=== PATIENT | female | born 1985 ===

== ENCOUNTER 2021-03-20 08:01 | Outpatient (REF) | payer OTHER, SELFPAY ==
--- NOTE | ~2021-03-20 | CT_ITS ---
EXAMINATION: CT ANGIOGRAM BRAIN, HEAD CLINICAL INFORMATION: 36-year-old undergoing evaluation for cerebral aneurysm. COMPARISON: None. TECHNIQUE: Test bolus sequences followed by intravenous administration 75 mL of Omnipaque 350 intravenous contrast. Helical imaging was performed in the axial plane from the skull base to the vertex. Delayed postcontrast imaging of the head was also performed. The data was processed at the electrophysiology technologist workstation for generation of MIP sequences. Three-dimensional volume rendered reformatted images were also generated at an offline 3-D workstation. The degree of stenosis determined by NASCET criteria. This CT examination was performed using dose optimization techniques as appropriate, variously including the following: *Automated exposure control *Adjustment of mA and/or kV according to patient size (this includes techniques or standardized protocols for targeted exams where dose is matched to indication/reason for exam; i.e. extremities or head) *Use of iterative reconstruction technique DLP: 2107.00 mGy-cm FINDINGS: Anterior Circulation: The visualized extracranial internal carotid arteries are patent and normal in caliber. The intracranial internal carotid arteries are patent and normal in caliber bilaterally. The M1 segments of the MCAs are bilaterally symmetric and normal in caliber, with a normal appearance to the M2 branches and MCA bifurcations. The right A1 segment is normal in caliber. The left A1 segment is hypoplastic but is faintly visualized. The anterior communicating artery is diminutive. The A2 branches are patent but are not optimally depicted. No aneurysms are seen within the anterior circulation. Both posterior communicating arteries are visualized. Posterior Circulation: The visualized extradural vertebral arteries are patent, with the right being dominant. The right intradural vertebral artery is patent and is dominant. The left intradural vertebral artery terminates in a PICA, which is an anatomic variant. The basilar artery is patent and normal in caliber. The superior cerebellar and posterior cerebral arteries are patent and normal in caliber. No posterior circulation aneurysms are identified. The major dural venous sinuses appear opacified. Right transverse sinus is relatively hypoplastic. Parenchymal images demonstrate that the brain is normal in morphology and attenuation with normal gupta-white matter differentiation. No extra-axial fluid collections, intracranial mass lesion, abnormal enhancement, space-occupying process or mass effect are identified. The ventricular system and subarachnoid spaces are within normal limits without hydrocephalus. The bony structures are intact. The visualized airspaces are unopacified. CT/CT angio head IMPRESSION: 1. Normal CT angiogram of the brain. No intracranial aneurysm identified. No evidence for arteriovenous malformation. 2. Normal precontrast and delayed postcontrast CT of the brain.
[2021-03-20] MEDS: iohexoL 350 MG/ML 100 ML INFUS..BTL IV (09:39)
== END 2021-03-20 08:02 | disposition home or self-care (01) ==
LOC: HO.CT 08:01
PROVIDERS: Visit Provider Psychiatry & Neurology Neurology
DX: I67.1 Cerebral aneurysm, nonruptured (principal)
CPT/HCPCS: 70496; Q9967

== ENCOUNTER 2022-01-29 12:30 | Outpatient (REF) | payer OTHER, SELFPAY ==
[2022-01-29 13:47] LABS: MANUAL DIFF FLAG NO
[2022-01-29 13:58] LABS: Basophils Percent Auto 0.2 % (0-2); Eosinophils Percent Auto 0.2 % (0-4); Hematocrit 37.2 % (37.0-47.0); Hemoglobin 12.2 g/dl (12.0-16.0); Imm Gran Abs Auto 0.02 X10*3/uL (0.00-0.03); Imm Gran Pct Auto 0.3 % (0.0-0.4); Lymphocytes Absolute Auto 2.5 X10*3/uL (1.2-4.9); Lymphocytes Percent Auto 39.1 % (20-40); Mean Corpuscular HGB Conc 32.8 g/dl (31.0-35.0); Mean Corpuscular Hemoglobin 29.2 pg (27.0-33.0); Mean Platelet Volume 10.2 fL (9.4-12.3); Monocytes Absolute Auto 0.7 X10*3/uL (0.1-1.2); Monocytes Percent Auto 11.5 % (2-11); Neutrophils Absolute Auto 3.1 x10*3/uL (2.0-8.3); Neutrophils Percent Auto 48.7 % (45-73); Platelet Count 246 X10*3/uL (160-400); Red Blood Count 4.18 X10*6/uL (4.20-5.50); Red Cell Distribution Width 11.8 % (11.0-16.0); White Blood Count 6.3 X10*3/uL (4.8-10.8)
[2022-01-29 15:23] LABS: Alanine Aminotransferase 22 U/L (0-31); Albumin Level 3.9 g/dL (3.5-5.0); Alkaline Phosphatase 91 U/L (39-117); Anion Gap 12 (12-20); Aspartate Amino Transferase 23 U/L (5-31); Bilirubin Total 0.7 mg/dL (0.0-1.0); Blood Urea Nitrogen 9 mg/dL (9-16); Calcium 9.7 mg/dL (8.4-10.2); Carbon Dioxide 22 mmol/L (22-29); Chloride 107 mmol/L (96-108); Cholesterol 147 mg/dL; Estimated Glomerular Filt Rate > 60; Glucose Fasting 86 mg/dL (60-99); HDL Cholesterol 51 mg/dL; LDL Cholesterol Calculated 83 mg/dl; Potassium 4.3 mmol/L (3.3-5.1); Sodium 137 mmol/L (135-145); TSH reflex Free T4 < 0.01 uIU/mL (0.32-4.0); Triglycerides 66 mg/dL
[2022-01-29 16:02] LABS: Free T4 (Free Thyroxine) 3.26 ng/dL (0.71-1.85)
[2022-02-02 13:33] LABS: Triiodothyronine T3 Free >20.0 pg/mL (2.3-4.2)
[2022-02-02 18:58] LABS: Thyroid Peroxidase Antibodies >900 IU/mL (<9)
== END 2022-01-29 12:31 | disposition home or self-care (01) ==
LOC: HO.WFDLDS 12:30
PROVIDERS: Visit Provider Nurse Practitioner Family
DX: Z00.00 Encounter for general adult medical examination without abnormal findings (principal); E05.90 Thyrotoxicosis, unspecified without thyrotoxic crisis or storm
CPT/HCPCS: 36415; 80053; 80061; 84439; 84443; 84481; 85025; 86376

== ENCOUNTER → 2022-02-04 11:31 | Outpatient (BNVA) | payer OTHER, SELFPAY | PROVIDERS: PCP Nurse Practitioner Family; Visit Provider Internal Medicine | DX: E05.90 Thyrotoxicosis, unspecified without thyrotoxic crisis or storm (principal) | CPT/HCPCS: 99202 ==

== ENCOUNTER 2022-02-04 12:09 | Emergency (ER) | payer OTHER, SELFPAY ==
[2022-02-04 12:11] VITALS: BP 158/69; PULSE 114; RESP 18; TEMP 36.8; O2SAT 100; BMI 25.9
--- NOTE | 2022-02-04 12:16 | ECG_ITS ---
Test Reason : tachycardia Blood Pressure : / mmHG Vent. Rate : 108 BPM Atrial Rate : 108 BPM P-R Int : 144 ms QRS Dur : 078 ms QT Int : 368 ms P-R-T Axes : 044 061 035 degrees QTc Int : 493 ms Sinus tachycardia Otherwise normal ECG No previous ECGs available Referred By: Henry Haji Electronically Signed By:Huber Alanis
--- NOTE | 2022-02-04 12:26 | ED_ITS ---
HPI - Arrhythmia/Palpitations General Chief Complaint: Arrhythmia/Palpitations <Henry Haji MD - Last Filed: 02/04/22 12:29> Stated Complaint: Tachycardia <Henry Haji MD - Last Filed: 02/04/22 12:29> Time Seen by Provider: 02/04/22 12:57 <Henry Haji MD - Last Filed: 02/04/22 12:29> Source: patient <Merry Santoyo MD - Last Filed: 02/04/22 15:07> Mode of arrival: ambulatory <Merry Santoyo MD - Last Filed: 02/04/22 15:07> History of Present Illness HPI narrative: 36-year-old female states that she has been enduring weeks ?crushing chest pain? and that it did not just began today she denies any recent travel history but did receive a prescription for Lopressor by her primary care provider but has not taken it for 2 days. She denies any unilateral calf swelling or diaphoresis but states that she has had a persistent anxious feeling as well as temperature fluctuations. Patient saw her medical record transcriber today to stop the metoprolol and started her on propanolol and methimazole. <Merry Santoyo MD - Last Filed: 02/04/22 15:07> Related Data Home Medications: Home Medications Medication Instructions Recorded Confirmed ibuprofen 600 mg tablet 600 mg PO Q6H PRN moderate pain 02/04/22 02/04/22 Previous Rx's Medication Instructions Recorded methimazole 10 mg tablet 10 mg PO BID 30 days #60 tabs 02/04/22 propranolol 10 mg tablet 10 mg PO Q8H 30 days #90 tabs 02/04/22 <Henry Haji MD - Last Filed: 02/04/22 12:29> Allergies/Adverse Reactions: Allergies Allergy/AdvReac Type Severity Reaction Status Date / Time No Known Allergies Allergy Verified 02/04/22 12:02 <Henry Haji MD - Last Filed: 02/04/22 12:29> Review of Systems Review of Systems: Pertinent positives and negatives as stated in HPI 10 point review of systems is otherwise negative. <Merry Santoyo MD - Last Filed: 02/04/22 15:07> PMFSH Past Medical History Source: nursing notes reviewed <Merry Santoyo MD - Last Filed: 02/04/22 15:07> Medical History: Medical History Thyroid eye disease <Henry Haij MD - Last Filed: 02/04/22 12:29> Surgical History: Surgical History History of appendectomy Hx of section Hx of wisdom tooth extraction <Henry Haji MD - Last Filed: 02/04/22 12:29> Family History Family History: Family History Father HTN (hypertension) Diabetes mellitus Mother Aneurysm Tumor Nasal tumor Sarcoidosis <Henry Haji MD - Last Filed: 02/04/22 12:29> Social History Social History: Social History Housing: House Alcohol intake: current Alcohol intake frequency: holidays/special occasions only Alcohol type: wine Patient Tobacco Use Status: Never used Tobacco e-Cigarette/Vaping Use: Never Used Advance Directives: No Advance Directives Information Provided: No service: No Current occupational status: employed 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 Current occupational exposures/hazards: No Cognitive needs: No Hearing needs: No Vision needs: No <Henry Haji MD - Last Filed: 02/04/22 12:29> Physical Exam Vital Signs: Vital Signs: Last Vital Signs Temp 98.2 F 02/04/22 12:11 Pulse 105 H 02/04/22 13:01 Resp 22 H 02/04/22 13:01 BP 130/54 L 02/04/22 13:01 Pulse Ox 100 02/04/22 12:11 O2 Del Method 02/04/22 12:11 BMI result Body Mass Index 25.9 <Henry Haji MD - Last Filed: 02/04/22 12:29> Vital Signs: Last Vital Signs Temp 98.2 F 02/04/22 12:11 Pulse 105 H 02/04/22 13:01 Resp 22 H 02/04/22 13:01 BP 130/54 L 02/04/22 13:01 Pulse Ox 100 02/04/22 12:11 O2 Del Method 02/04/22 12:11 BMI result Body Mass Index 25.9 VITAL SIGNS: Reviewed. GENERAL: Well developed, well nourished, in mild distress. HEAD: Normocephalic/atraumatic EYES: PERRLA, EOMI EARS: Ext canals without abnormality OROPHARYNX: no oral lesions noted, posterior pharynx clear LUNGS: Normal breath sounds, tachypnea without wheeze/rhonchi/rales. SpO2<100> CARDIOVASCULAR: Sinus tachycardia and rhythm without noted murmurs ABDOMEN: Soft, non-tender, non-distended with bowel sounds. MUSCULOSKELETAL: No tenderness, deformities, or effusions noted on gross inspection. EXTREMITIES: No cyanosis, clubbing or edema. SKIN: Inspection of the skin reveals no rashes NEUROLOGIC: Alert and oriented x 4. Strength and sensation to light touch were grossly intact x 4. <Merry Santoyo MD - Last Filed: 02/04/22 15:07> Course Course Course Narrative: RME: 36-year-old female times 15 months presents emergency department for evaluation of tremors, shakiness, elevated heart rate, change in her vision, trouble sleeping and weight loss. Patient's PCP started her on metoprolol for tachycardia and referred her to an medical record transcriber. Patient was seen by her medical record transcriber today diagnosed with hyperthyroidism but the patient was complaining of significant chest pain so she was referred to the emergency department for evaluation. At the time my evaluation, she is complaining of palpitations only. The patient was found to be tachycardic. I ordered a CBC, CMP, quantitative beta-hCG, troponin and EKG. <Henry Haji MD - Last Filed: 02/04/22 12:29> RME: 36-year-old female times 15 months presents emergency department for evaluation of tremors, shakiness, elevated heart rate, change in her vision, trouble sleeping and weight loss. Patient's PCP started her on metoprolol for tachycardia and referred her to an medical record transcriber. Patient was seen by her medical record transcriber today diagnosed with hyperthyroidism but the patient was complaining of significant chest pain so she was referred to the emergency department for evaluation. At the time my evaluation, she is complaining of palpitations only. The patient was found to be tachycardic. I ordered a CBC, CMP, quantitative beta-hCG, troponin and EKG. 1416: Patient appears well although anxious which she has states is not new, will give patient her new dose of propanolol as well as hydroxyzine to help with her feelings of anxiety as she has a small child to care for home and is driving herself. 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 I noticed an elevated/detectable troponin level which likely is reflective of patient's ongoing tachycardia, patient's D-dimer is 221 and given remaining history and clinical findings unlikely to be PE. I will re-evaluate the patient after she has received her propanolol and hydroxyzine. 1445: Heart rate is improving, 2nd troponin is flat likely again indicative to patient's persistent tachycardia over a prolonged period of time. Patient states that she is feeling ?so much better?. She is otherwise discharged home in stable condition with instructions to continue her new medication as prescribed and she will receive a referral to follow-up with Cardiology as well. <Merry Santoyo MD - Last Filed: 02/04/22 15:07> Medications Administered Discontinued Medications Generic Name Dose Route Start Last Admin Trade Name Freq PRN Reason Stop Dose Admin Hydroxyzine HCl 25 mg 02/04/22 13:49 02/04/22 14:11 Hydroxyzine Hcl 25 Mg Tablet PO 02/04/22 13:50 25 mg ONCE ONE Administration Propranolol HCl 10 mg 02/04/22 13:49 02/04/22 14:11 Propranolol Hcl 10 Mg Tablet PO 02/04/22 13:50 10 mg ONCE ONE Administration Protocol <Henry Haji MD - Last Filed: 02/04/22 12:29> Medications Administered Discontinued Medications Generic Name Dose Route Start Last Admin Trade Name Freq PRN Reason Stop Dose Admin Hydroxyzine HCl 25 mg 02/04/22 13:49 02/04/22 14:11 Hydroxyzine Hcl 25 Mg Tablet PO 02/04/22 13:50 25 mg ONCE ONE Administration Propranolol HCl 10 mg 02/04/22 13:49 02/04/22 14:11 Propranolol Hcl 10 Mg Tablet PO 02/04/22 13:50 10 mg ONCE ONE Administration Protocol <Merry Santoyo MD - Last Filed: 02/04/22 15:07> Medical Decision Making Medical Decision Making MDM Narrative: This is a 36-year-old female with diagnose thyrotoxicosis by her primary care provider and medical record transcriber and has undergone medication changes today and will be started on propanolol and methimazole. Patient is not currently in thyroid storm, she is mildly tachycardic. <Merry Santoyo MD - Last Filed: 02/04/22 15:07> Differential Diagnosis Differential Diagnoses: The differential diagnosis associated with the presentation includes <Merry Santoyo MD - Last Filed: 02/04/22 15:07> Dehydration, thyrotoxicosis, less likely cardiac ischemia or PE <Merry Santoyo MD - Last Filed: 02/04/22 15:07> Lab Data Result Diagrams: : 02/04/22 12:26 02/04/22 12:26 <Henry Haji MD - Last Filed: 02/04/22 12:29> Labs: Lab Results 02/04/22 02/04/22 02/04/22 Range/Units 12:26 12:26 12:26 WBC 10.1 (4.8-10.8) X10*3/uL RBC 3.87 L (4.20-5.50) X10*6/uL Hgb 11.5 L (12.0-16.0) g/dl Hct 34.7 L (37.0-47.0) % MCV 89.7 (80.0-98.0) fL MCH 29.7 (27.0-33.0) pg MCHC 33.1 (31.0-35.0) g/dl RDW 12.0 (11.0-16.0) % Plt Count 186 (160-400) X10*3/uL MPV 9.0 L (9.4-12.3) fL Immature Gran % (Auto) 0.2 (0.0-0.4) % Neut % (Auto) 68.9 (45-73) % Lymph % (Auto) 21.7 (20-40) % [place] % (Auto) 9.0 (2-11) % Eos % (Auto) 0.1 (0-4) % Baso % (Auto) 0.1 (0-2) % Lymph # (Auto) 2.2 (1.2-4.9) X10*3/uL [place] # (Auto) 0.9 (0.1-1.2) X10*3/uL Eos # (Auto) 0.0 (0.0-0.4) X10*3/uL Baso # (Auto) 0.0 (0.0-0.2) X10*3/uL Abs Immat Gran (auto) 0.02 (0.00-0.03) X10*3/uL Absolute Neuts (auto) 7.0 (2.0-8.3) x10*3/uL Absolute Nucleated RBC 0.000 (0.0-0.012) X10*3/uL Nucleated RBC % (auto) 0.0 (0.0-0.2) /100WBC D-Dimer High Sensitivty NG/ML Sodium 140 (135-145) mmol/L Potassium 4.3 (3.3-5.1) mmol/L Chloride 110 H (96-108) mmol/L Carbon Dioxide 22 (22-29) mmol/L Anion Gap 12 (12-20) BUN 9 (9-16) mg/dL Creatinine 0.56 (0.5-1.4) mg/dL Estim Creat Clear Calc 149.9 Estimated GFR > 60 Random Glucose 85 (60-115) mg/dL Calcium 9.4 (8.4-10.2) mg/dL Total Bilirubin 0.6 (0.0-1.0) mg/dL AST 16 (5-31) U/L ALT 14 (0-31) U/L Alkaline Phosphatase 89 (39-117) U/L Troponin I High Sens 24.1 H (<3.5-17.0) ng/L Total Protein 6.6 (6.5-8.0) g/dL Albumin 3.5 (3.5-5.0) g/dL Beta HCG, Quant mIU/mL 02/04/22 02/04/22 02/04/22 Range/Units 12:26 13:16 13:59 WBC (4.8-10.8) X10*3/uL RBC (4.20-5.50) X10*6/uL Hgb (12.0-16.0) g/dl Hct (37.0-47.0) % MCV (80.0-98.0) fL MCH (27.0-33.0) pg MCHC (31.0-35.0) g/dl RDW (11.0-16.0) % Plt Count (160-400) X10*3/uL MPV (9.4-12.3) fL Immature Gran % (Auto) (0.0-0.4) % Neut % (Auto) (45-73) % Lymph % (Auto) (20-40) % [place] % (Auto) (2-11) % Eos % (Auto) (0-4) % Baso % (Auto) (0-2) % Lymph # (Auto) (1.2-4.9) X10*3/uL [place] # (Auto) (0.1-1.2) X10*3/uL Eos # (Auto) (0.0-0.4) X10*3/uL Baso # (Auto) (0.0-0.2) X10*3/uL Abs Immat Gran (auto) (0.00-0.03) X10*3/uL Absolute Neuts (auto) (2.0-8.3) x10*3/uL Absolute Nucleated RBC (0.0-0.012) X10*3/uL Nucleated RBC % (auto) (0.0-0.2) /100WBC D-Dimer High Sensitivty 221 NG/ML Sodium (135-145) mmol/L Potassium (3.3-5.1) mmol/L Chloride (96-108) mmol/L Carbon Dioxide (22-29) mmol/L Anion Gap (12-20) BUN (9-16) mg/dL Creatinine (0.5-1.4) mg/dL Estim Creat Clear Calc Estimated GFR Random Glucose (60-115) mg/dL Calcium (8.4-10.2) mg/dL Total Bilirubin (0.0-1.0) mg/dL AST (5-31) U/L ALT (0-31) U/L Alkaline Phosphatase (39-117) U/L Troponin I High Sens 24.1 H (<3.5-17.0) ng/L Total Protein (6.5-8.0) g/dL Albumin (3.5-5.0) g/dL Beta HCG, Quant < 2 mIU/mL <Henry Haji MD - Last Filed: 02/04/22 12:29> Lab Results 02/04/22 02/04/22 02/04/22 Range/Units 12:26 12:26 12:26 WBC 10.1 (4.8-10.8) X10*3/uL RBC 3.87 L (4.20-5.50) X10*6/uL Hgb 11.5 L (12.0-16.0) g/dl Hct 34.7 L (37.0-47.0) % MCV 89.7 (80.0-98.0) fL MCH 29.7 (27.0-33.0) pg MCHC 33.1 (31.0-35.0) g/dl RDW 12.0 (11.0-16.0) % Plt Count 186 (160-400) X10*3/uL MPV 9.0 L (9.4-12.3) fL Immature Gran % (Auto) 0.2 (0.0-0.4) % Neut % (Auto) 68.9 (45-73) % Lymph % (Auto) 21.7 (20-40) % [place] % (Auto) 9.0 (2-11) % Eos % (Auto) 0.1 (0-4) % Baso % (Auto) 0.1 (0-2) % Lymph # (Auto) 2.2 (1.2-4.9) X10*3/uL [place] # (Auto) 0.9 (0.1-1.2) X10*3/uL Eos # (Auto) 0.0 (0.0-0.4) X10*3/uL Baso # (Auto) 0.0 (0.0-0.2) X10*3/uL Abs Immat Gran (auto) 0.02 (0.00-0.03) X10*3/uL Absolute Neuts (auto) 7.0 (2.0-8.3) x10*3/uL Absolute Nucleated RBC 0.000 (0.0-0.012) X10*3/uL Nucleated RBC % (auto) 0.0 (0.0-0.2) /100WBC D-Dimer High Sensitivty NG/ML Sodium 140 (135-145) mmol/L Potassium 4.3 (3.3-5.1) mmol/L Chloride 110 H (96-108) mmol/L Carbon Dioxide 22 (22-29) mmol/L Anion Gap 12 (12-20) BUN 9 (9-16) mg/dL Creatinine 0.56 (0.5-1.4) mg/dL Estim Creat Clear Calc 149.9 Estimated GFR > 60 Random Glucose 85 (60-115) mg/dL Calcium 9.4 (8.4-10.2) mg/dL Total Bilirubin 0.6 (0.0-1.0) mg/dL AST 16 (5-31) U/L ALT 14 (0-31) U/L Alkaline Phosphatase 89 (39-117) U/L Troponin I High Sens 24.1 H (<3.5-17.0) ng/L Total Protein 6.6 (6.5-8.0) g/dL Albumin 3.5 (3.5-5.0) g/dL Beta HCG, Quant mIU/mL 02/04/22 02/04/22 02/04/22 Range/Units 12:26 13:16 13:59 WBC (4.8-10.8) X10*3/uL RBC (4.20-5.50) X10*6/uL Hgb (12.0-16.0) g/dl Hct (37.0-47.0) % MCV (80.0-98.0) fL MCH (27.0-33.0) pg MCHC (31.0-35.0) g/dl RDW (11.0-16.0) % Plt Count (160-400) X10*3/uL MPV (9.4-12.3) fL Immature Gran % (Auto) (0.0-0.4) % Neut % (Auto) (45-73) % Lymph % (Auto) (20-40) % [place] % (Auto) (2-11) % Eos % (Auto) (0-4) % Baso % (Auto) (0-2) % Lymph # (Auto) (1.2-4.9) X10*3/uL [place] # (Auto) (0.1-1.2) X10*3/uL Eos # (Auto) (0.0-0.4) X10*3/uL Baso # (Auto) (0.0-0.2) X10*3/uL Abs Immat Gran (auto) (0.00-0.03) X10*3/uL Absolute Neuts (auto) (2.0-8.3) x10*3/uL Absolute Nucleated RBC (0.0-0.012) X10*3/uL Nucleated RBC % (auto) (0.0-0.2) /100WBC D-Dimer High Sensitivty 221 NG/ML Sodium (135-145) mmol/L Potassium (3.3-5.1) mmol/L Chloride (96-108) mmol/L Carbon Dioxide (22-29) mmol/L Anion Gap (12-20) BUN (9-16) mg/dL Creatinine (0.5-1.4) mg/dL Estim Creat Clear Calc Estimated GFR Random Glucose (60-115) mg/dL Calcium (8.4-10.2) mg/dL Total Bilirubin (0.0-1.0) mg/dL AST (5-31) U/L ALT (0-31) U/L Alkaline Phosphatase (39-117) U/L Troponin I High Sens 24.1 H (<3.5-17.0) ng/L Total Protein (6.5-8.0) g/dL Albumin (3.5-5.0) g/dL Beta HCG, Quant < 2 mIU/mL <Merry Santoyo MD - Last Filed: 02/04/22 15:07> Independent Interpretation I performed an independent interpretation of an: EKG <Merry Santoyo MD - Last Filed: 02/04/22 15:07> Interpretation: Sinus tachycardia, HR-108, no STEMI, NV/QRS/QTC are within normal limits. <Merry Santoyo MD - Last Filed: 02/04/22 15:07> Critical Care Time Critical Care Time Critical Care Time: Yes <Merry Santoyo MD - Last Filed: 02/04/22 15:07> Total Critical Care Time: 30 <Merry Santoyo MD - Last Filed: 02/04/22 15:07> Attestation: I personally attest to this time spent taking care of the patient. <Merry Santoyo MD - Last Filed: 02/04/22 15:07> Discharge Plan Discharge Clinical Impression: Thyrotoxicosis due to Graves' disease <Henry Haji MD - Last Filed: 02/04/22 12:29> Patient Disposition: Home, Self-Care <Henry Haji MD - Last Filed: 02/04/22 12:29> Additional Instructions: 1. Take medication as prescribed. 2. Recommend [id number] Benadryl as needed for additional assistance in sleeping at night. 3. Continue to follow-up with primary care provider/medical record transcriber. 4. A referral for cardiology has been provided to you below. Return to the ER for any worsening symptoms. <Henry Haji MD - Last Filed: 02/04/22 12:29> Prescriptions: No Action ibuprofen 600 mg tablet 600 mg PO Q6H PRN (Reason: moderate pain) propranolol 10 mg tablet 10 mg PO Q8H 30 Days Qty: 90 5RF Rx Instructions: Hold if HR <70 methimazole 10 mg tablet 10 mg PO BID 30 Days Qty: 60 6RF <Henry Haji MD - Last Filed: 02/04/22 12:29> Referrals: Prabha Kenyon CNP [Primary Care Provider] - Huber Alanis MD [Physician] - (36F with thyrotoxicosis, started on Propranolol/Methimazole, flat Trops at 24.) <Henry Haji MD - Last Filed: 02/04/22 12:29>
[2022-02-04 12:33] LABS: Basophils Percent Auto 0.1 % (0-2); Eosinophils Percent Auto 0.1 % (0-4); Hematocrit 34.7 % (37.0-47.0); Hemoglobin 11.5 g/dl (12.0-16.0); Imm Gran Abs Auto 0.02 X10*3/uL (0.00-0.03); Imm Gran Pct Auto 0.2 % (0.0-0.4); Lymphocytes Absolute Auto 2.2 X10*3/uL (1.2-4.9); Lymphocytes Percent Auto 21.7 % (20-40); MANUAL DIFF FLAG NO; Mean Corpuscular HGB Conc 33.1 g/dl (31.0-35.0); Mean Corpuscular Hemoglobin 29.7 pg (27.0-33.0); Mean Corpuscular Volume 89.7 fL (80.0-98.0); Monocytes Absolute Auto 0.9 X10*3/uL (0.1-1.2); Neutrophils Percent Auto 68.9 % (45-73); Platelet Count 186 X10*3/uL (160-400); Red Blood Count 3.87 X10*6/uL (4.20-5.50); White Blood Count 10.1 X10*3/uL (4.8-10.8)
[2022-02-04 12:49] LABS: Alanine Aminotransferase 14 U/L (0-31); Albumin Level 3.5 g/dL (3.5-5.0); Alkaline Phosphatase 89 U/L (39-117); Anion Gap 12 (12-20); Aspartate Amino Transferase 16 U/L (5-31); Bilirubin Total 0.6 mg/dL (0.0-1.0); Blood Urea Nitrogen 9 mg/dL (9-16); Calcium 9.4 mg/dL (8.4-10.2); Carbon Dioxide 22 mmol/L (22-29); Chloride 110 mmol/L (96-108); Creatinine Clr Calc Pharmacy 149.9; Estimated Glomerular Filt Rate > 60; Glucose Random 85 mg/dL (60-115); Potassium 4.3 mmol/L (3.3-5.1); Sodium 140 mmol/L (135-145); Total Protein 6.6 g/dL (6.5-8.0)
[2022-02-04 12:56] LABS: Troponin-I High Sensitivity 24.1 ng/L (<3.5-17.0)
[2022-02-04 12:57] LABS: HCG Quantitative < 2 mIU/mL
[2022-02-04 13:01] VITALS: BP 130/54; PULSE 105; RESP 22
[2022-02-04 13:45] LABS: D Dimer High Sensitivity 221 NG/ML
[2022-02-04] MEDS: hydrOXYzine HCL 25 MG TABLET PO (14:11)
[2022-02-04] MEDS: Propranolol HCL 10 MG TABLET PO (14:11)
[2022-02-04 14:25] LABS: Troponin-I High Sensitivity 24.1 ng/L (<3.5-17.0)
--- NOTE | 2022-02-04 14:36 | PC.NURSE ---
pt a&ox3, sinus tach, other vss, medicated per provider order. no new orders at this time.
[2022-02-04 16:45] LABS: Magnesium 1.5 mg/dL (1.6-2.6)
== END 2022-02-04 15:27 | disposition home or self-care (01) ==
PROVIDERS: Emergency Medicine Emergency Medical Services; Emergency Provider Student in an Organized Health Care Education/Training Program; PCP Nurse Practitioner Family
DX: E05.00 Thyrotoxicosis with diffuse goiter without thyrotoxic crisis or storm (principal); R00.0 Tachycardia, unspecified
CPT/HCPCS: 36415; 80053; 83735; 84484; 84702; 85025; 85379; 93005; 99283

== ENCOUNTER 2022-02-19 11:22 | Outpatient (REF) | payer OTHER, SELFPAY ==
--- NOTE | ~2022-02-19 | US_ITS ---
EXAMINATION: US THYROID CLINICAL INFORMATION: Thyrotoxicosis, unspecified without thyrotoxic crisis or storm. COMPARISON: None. TECHNIQUE: Linear transducer grayscale and color Doppler examination with attention to the region of the thyroid. FINDINGS: SIZE: Measurements of the thyroid lobes and nodules are given in sagittal, anteroposterior and transverse dimensions respectively. Right Thyroid Lobe: 5.8 x 2.5 x 2.4 cm, volume 18.1 mL. Parenchyma: The gland echotexture is heterogeneous. Thyroid vascularity is increased. Left Thyroid Lobe: 5.0 x 2.4 x 2.1 cm, volume 13.1 mL. Parenchyma: The gland echotexture is heterogeneous. Thyroid vascularity is increased. Isthmus: 0.9 cm in maximum AP dimension. No focal thyroid nodule is seen. NODES: No lymphadenopathy is seen in the tissue surrounding the thyroid gland. US/US thyroid IMPRESSION: Enlarged slightly heterogeneous and hypervascular thyroid lobes but no focal lesion seen. The findings are most likely secondary to thyrotoxicosis. ACR TI-RADS RECOMMENDATION REFERENCE: Ultrasound-guided fine-needle aspiration, followup ultrasound, no further follow up. * TR1 (0 point) and TR 2 (2 points): No FNA or follow up. * TR3 (3 points): FNA if more than or equal to 2.5 cm in maximum dimension, followup ultrasound in 1, 3 and 5 years if 1.5 to 2.4 cm in maximum dimension. * TR4 (4-6 points): FNA if more than or equal to 1.5 cm in maximum dimension, followup ultrasound in 1, 2, 3 and 5 years if 1 to 1.4 cm in maximum dimension. * TR5 (more than or equal to 7 points): FNA if more than or equal to 1 cm in maximum dimension, followup ultrasound every year for 5 years if 0.5 to 0.9 cm in maximum dimension. * TR3, TR4 or TR5 nodules that are below the size threshold for followup receive no follow up.
[2022-02-20 17:09] LABS: Triiodothyronine T3 Total 263 ng/dL (76-181)
[2022-02-23 15:48] LABS: Thyroid Stimulating Immunoglob 648 % baseline (<140)
[2022-02-23 20:58] LABS: Thyroglobulin Antibodies 269 IU/mL (< or = 1)
[2022-02-24 15:03] LABS: Thyrotropin Receptor Antibody >40.00 IU/L (<=2.00)
== END 2022-02-19 11:23 | disposition home or self-care (01) ==
LOC: HO.HMGCX 11:22
PROVIDERS: PCP Nurse Practitioner Family; Visit Provider Internal Medicine
DX: E05.90 Thyrotoxicosis, unspecified without thyrotoxic crisis or storm (principal)
CPT/HCPCS: 36415; 76536; 83520; 84439; 84445; 84480; 86800

== ENCOUNTER → 2022-02-25 10:27 | Outpatient (BNVA) | payer OTHER, SELFPAY | PROVIDERS: PCP Nurse Practitioner Family; Visit Provider Internal Medicine | DX: E05.90 Thyrotoxicosis, unspecified without thyrotoxic crisis or storm (principal) | CPT/HCPCS: 99212 ==

== ENCOUNTER → 2022-02-26 09:21 | Outpatient (REF) | payer OTHER, SELFPAY ==
--- NOTE | ~2022-02-26 | NM_ITS ---
EXAMINATION: THYROID UPTAKE AND SCAN CLINICAL INFORMATION: Thyrotoxicosis. COMPARISON: No previous radionuclide thyroid scan is available for comparison. Thyroid ultrasound dated 02/19/2022 is available for comparison. TECHNIQUE: Following the oral administration of 291 microcuries of I-123 sodium iodide, thyroid uptake was performed and expressed as a percentage of the administrated dose. Gamma scintillation camera images of the thyroid in the anterior and right and left anterior oblique views were obtained using a pinhole collimator following the administration of 10 mCi Tc-99m pertechnetate. FINDINGS: The uptake is 57.2% at 4 hours and 93.8% at 24 hours (Normal radioiodine uptake at 24 hours is 10% to 30%). The radioiodine uptake is markedly elevated. The radiopertechnetate thyroid scintigram shows the thyroid gland to be mildly enlarged, proximally 1 1/2 times normal in size. There is homogeneous distribution of activity within the gland with markedly increased trapping function. No focal abnormalities are present. A single anterior radioiodine image obtained at the time of the 24-hour uptake measurement is similar to the radio pertechnetate image. NM/NM thyroid w uptake IMPRESSION: Mildly enlarged diffuse toxic goiter of Graves' disease. Markedly elevated radioiodine uptake. No nodules are visualized.
== END ==
LOC: HO.NUCMED 09:21
PROVIDERS: PCP Nurse Practitioner Family; Visit Provider Internal Medicine
DX: E05.90 Thyrotoxicosis, unspecified without thyrotoxic crisis or storm (principal)
CPT/HCPCS: 78014; A9512; A9516

== ENCOUNTER → 2022-03-26 09:16 | Outpatient (BNVA) | payer SELFPAY | PROVIDERS: PCP Family Medicine; Referring Provider Family Medicine; Visit Provider Internal Medicine | DX: R00.0 Tachycardia, unspecified (principal); R00.2 Palpitations; R77.8 Other specified abnormalities of plasma proteins; E05.90 Thyrotoxicosis, unspecified without thyrotoxic crisis or storm | CPT/HCPCS: 99202 ==

== ENCOUNTER 2022-09-07 03:48 | Emergency (ER) | payer OTHER, SELFPAY ==
--- NOTE | ~2022-09-07 | XR_ITS ---
EXAMINATION: XR CHEST CLINICAL INFORMATION: Chest pain COMPARISON: None available. TECHNIQUE: Frontal view of the chest was obtained. FINDINGS: The lungs are clear with no focal consolidation. No evidence of pneumothorax, pulmonary edema, or pleural effusions. The cardiomediastinal silhouette is unremarkable. No acute osseous findings. XR/XR chest 1V IMPRESSION: No acute cardiopulmonary findings.
[2022-09-07 03:49] VITALS: BP 140/77; PULSE 116; RESP 22; TEMP 36.4; O2SAT 100; BMI 23.3
--- NOTE | 2022-09-07 03:55 | ECG_ITS ---
Test Reason : cp Blood Pressure : / mmHG Vent. Rate : 113 BPM Atrial Rate : 113 BPM P-R Int : 180 ms QRS Dur : 078 ms QT Int : 336 ms P-R-T Axes : 031 070 061 degrees QTc Int : 460 ms Sinus tachycardia Otherwise normal ECG When compared with ECG of 04-FEB-2022 12:18, No significant change was found Referred By: Generic ED Physician Electronically Signed By:DEIDRA MATA MD
--- NOTE | 2022-09-07 04:06 | ECG_ITS ---
Test Reason : CHEST PAIN Blood Pressure : / mmHG Vent. Rate : 121 BPM Atrial Rate : 121 BPM P-R Int : 172 ms QRS Dur : 078 ms QT Int : 308 ms P-R-T Axes : 050 068 025 degrees QTc Int : 437 ms Sinus tachycardia Nonspecific ST and T wave abnormality When compared with ECG of 07-SEP-2022 03:56, No significant change was found Referred By: Generic ED Physician Electronically Signed By:DEIDRA MATA MD
[2022-09-07 04:13] VITALS: BP 123/75; PULSE 107; RESP 22; TEMP 36.8; O2SAT 99
[2022-09-07 04:13] LABS: MANUAL DIFF FLAG NO
[2022-09-07 04:16] LABS: Basophils Percent Auto 0.1 % (0-2); Eosinophils Absolute Auto 0.1 X10*3/uL (0.0-0.4); Eosinophils Percent Auto 0.6 % (0-4); Hematocrit 34.1 % (37.0-47.0); Hemoglobin 11.2 g/dl (12.0-16.0); Imm Gran Abs Auto 0.01 X10*3/uL (0.00-0.03); Imm Gran Pct Auto 0.1 % (0.0-0.4); Lymphocytes Absolute Auto 3.9 X10*3/uL (1.2-4.9); Lymphocytes Percent Auto 44.5 % (20-40); Mean Corpuscular HGB Conc 32.8 g/dl (31.0-35.0); Mean Corpuscular Hemoglobin 29.4 pg (27.0-33.0); Mean Corpuscular Volume 89.5 fL (80.0-98.0); Mean Platelet Volume 9.8 fL (9.4-12.3); Monocytes Absolute Auto 0.9 X10*3/uL (0.1-1.2); Monocytes Percent Auto 10.4 % (2-11); Neutrophils Absolute Auto 3.9 x10*3/uL (2.0-8.3); Neutrophils Percent Auto 44.3 % (45-73); Platelet Count 174 X10*3/uL (160-400); Red Blood Count 3.81 X10*6/uL (4.20-5.50); Red Cell Distribution Width 11.8 % (11.0-16.0); White Blood Count 8.8 X10*3/uL (4.8-10.8)
[2022-09-07 04:24] LABS: D Dimer High Sensitivity 216 NG/ML
--- NOTE | 2022-09-07 04:29 | PC.NURSE ---
Pt arrived to ED reporting 9 substernal chest pain radiating to back, pressure in nature. Reports multiple episodes of diarrhea and nausea today. EKG completed showing ST, labs drawn and sent, IV placed #20 L-AC. Pt ST 100's-110's on tele. MD at bedside order repeat troponin at 0630.
[2022-09-07 04:33] VITALS: PULSE 108
[2022-09-07 04:34] LABS: Alanine Aminotransferase 24 U/L (0-31); Albumin Level 3.3 g/dL (3.5-5.0); Alkaline Phosphatase 133 U/L (39-117); Anion Gap 12 (12-20); Aspartate Amino Transferase 21 U/L (5-31); Bilirubin Direct 0.3 mg/dL (0.0-0.5); Bilirubin Total 0.7 mg/dL (0.0-1.0); Blood Urea Nitrogen 11 mg/dL (9-16); Calcium 10.1 mg/dL (8.4-10.2); Carbon Dioxide 23 mmol/L (22-29); Chloride 110 mmol/L (96-108); Creatinine Clr Calc Pharmacy 155.8; Estimated Glomerular Filt Rate > 60; Glucose Random 96 mg/dL (60-115); Lipase 16 U/L (8-78); Potassium 3.7 mmol/L (3.3-5.1); Sodium 141 mmol/L (135-145); Total Protein 6.6 g/dL (6.5-8.0)
[2022-09-07 04:37] LABS: Troponin-I High Sensitivity 2.8 ng/L (<3.5-17.0)
--- NOTE | 2022-09-07 04:42 | ED.CHESTPAIN ---
HPI - Chest Pain General Chief Complaint: Chest Pain Stated Complaint: Chest pain Time Seen by Provider: 09/07/22 04:38 Source: patient Mode of arrival: ambulatory Limitations: no limitations History of Present Illness HPI narrative: A 37-year-old female woke up from sleep today with lightheadedness, been shaky, chest pain, patient also had nonbloody watery diarrhea and vomiting. Chest pain is constant for are and have now feels like pressure on the chest, with no radiation, no associated symptoms with the pain, no shortness of breath, no recent travel, no recent prolonged immobilization. Patient was hyperthyroidism with thyrotoxicosis. Patient had a cardiology evaluation for elevated troponin and patient thought that elevated troponin secondary still hyperthyroidism rather coronary artery disease. Related Data Home Medications Medication Instructions Recorded Confirmed ibuprofen 600 mg tablet 600 mg PO Q6H PRN moderate pain 02/04/22 03/26/22 Previous Rx's Medication Instructions Recorded methimazole 10 mg tablet 10 mg PO BID 30 days #60 tabs 02/23/22 propranolol 10 mg tablet 20 mg PO Q8H 90 days #540 tabs 03/26/22 Allergies Allergy/AdvReac Type Severity Reaction Status Date / Time No Known Allergies Allergy Verified 03/26/22 09:21 Review of Systems Review of Systems: All other systems are reviewed and are negative Constitutional: Reports as per HPI and Reports no additional constitutional complaints Eyes: Reports as per HPI and Reports no additional eye complaints Reports system reviewed and no additional complaints, except as documented Cardiovascular: Reports as per HPI and Reports no additional cardiovascular complaints Respiratory: Reports as per HPI and Reports no additional respiratory complaints Gastrointestinal: Reports as per HPI and Reports no additional gastrointestinal complaints Genitourinary: Reports no additional female genitourinary complaints Musculoskeletal: Reports no additional musculoskeletal complaints Skin/Breast: Reports system reviewed and no additional complaints, except as docu Psychiatric: Reports no additional psychiatric complaints Endocrine: Reports no additional endocrine complaints Hematologic/Lymphatic: Reports no additional hematologic/lymphatic complaints Allergic/Immunologic: Reports no additional allergic/immunologic complaints Reports system reviewed and no additional complaints, except as documented and Reports Abnormal speech present [facility] Past Medical History Medical History Thyroid eye disease Surgical History History of appendectomy Hx of section Hx of wisdom tooth extraction Family History Family History Father HTN (hypertension) Diabetes mellitus Mother Aneurysm Tumor Nasal tumor Sarcoidosis Social History Social History Housing: House Alcohol intake: never Patient Tobacco Use Status: Never used Tobacco Smoked in Last 30 Days: No e-Cigarette/Vaping Use: Never Used Advance Directives: No Advance Directives Information Provided: Yes service: No Current occupational status: employed 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 Blood pressure normal. Heart rate elevated. Respiration rate elevated. Temperature normal. Oxygen saturation normal. Appearance: Alert. Oriented X3. No acute distress. Head: Normal external exam. Normocephalic. Atraumatic. No Jackson signs noted. No raccoon eyes noted Eyes: PERRLA. EOMI. Conjunctiva and sclera normal. Eyelids normal. ENT: TM's Normal. Pharynx normal. Uvula midline. Moist mucous membranes. No trismus noted. No drooling noted. No muffled voice noted. Neck: Normal inspection. Neck supple. FROM. No adenopathy. Thyroid Normal. No meningeal signs. No neck mass noted. CVS: Normal heart rate and rhythm. Heart sound normal. No murmurs noted. Pulses normal throughout. Respiratory: No respiratory distress. Painless inspiration. Breath sounds normal. No wheezes/rales/rhonchi noted. Chest nontender. No accessory muscle usage noted or decreased air movement noted. Abdomen: Soft and nontender. Bowel sounds normal in all 4 quadrants. No distention noted. No organomegaly noted. No visible injury noted. Back: No CVA tenderness. Full range of motion noted. Skin: Skin warm and dry. Normal skin color. Normal skin turgor. No rashes/lesions/lacerations noted. Extremities: No lower extremity edema. Extremities exhibit normal range of motion. Extremities nontender. Neuro: Oriented X 3. Cranial nerve exam: II-XII are grossly intact No motor deficit. No sensory deficit. Reflexes normal. Course Course Course Narrative: 37-year-old female came in for evaluation with chest pain, patient has unremarkable chest x-ray, unchanged EKG with nonspecific ST-T changes. Negative troponin x2 making ACS is unfavorable. Medical Decision Making Differential Diagnosis Differential Diagnoses: The differential diagnosis associated with the presentation includes (Chest wall pain, ACS, costochondritis, pneumothorax, pneumonia, pleural effusion, electrolyte abnormality, pulmonary embolism.) Admission/Observation Consideration of admission/observation: Escalation of care including admission/observation considered Lab Data MDM Lab Attestation statement: I reviewed the patient's lab results. 09/07/22 04:09 09/07/22 04:09 Labs: Lab Results 09/07/22 09/07/22 09/07/22 Range/Units 04:09 04:09 04:09 WBC 8.8 (4.8-10.8) X10*3/uL RBC 3.81 L (4.20-5.50) X10*6/uL Hgb 11.2 L (12.0-16.0) g/dl Hct 34.1 L (37.0-47.0) % MCV 89.5 (80.0-98.0) fL MCH 29.4 (27.0-33.0) pg MCHC 32.8 (31.0-35.0) g/dl RDW 11.8 (11.0-16.0) % Plt Count 174 (160-400) X10*3/uL MPV 9.8 (9.4-12.3) fL Immature Gran % (Auto) 0.1 (0.0-0.4) % Neut % (Auto) 44.3 L (45-73) % Lymph % (Auto) 44.5 H (20-40) % [place] % (Auto) 10.4 (2-11) % Eos % (Auto) 0.6 (0-4) % Baso % (Auto) 0.1 (0-2) % Lymph # (Auto) 3.9 (1.2-4.9) X10*3/uL [place] # (Auto) 0.9 (0.1-1.2) X10*3/uL Eos # (Auto) 0.1 (0.0-0.4) X10*3/uL Baso # (Auto) 0.0 (0.0-0.2) X10*3/uL Abs Immat Gran (auto) 0.01 (0.00-0.03) X10*3/uL Absolute Neuts (auto) 3.9 (2.0-8.3) x10*3/uL Absolute Nucleated RBC 0.000 (0.0-0.012) X10*3/uL Nucleated RBC % (auto) 0.0 (0.0-0.2) /100WBC D-Dimer High Sensitivty 216 NG/ML Sodium 141 (135-145) mmol/L Potassium 3.7 (3.3-5.1) mmol/L Chloride 110 H (96-108) mmol/L Carbon Dioxide 23 (22-29) mmol/L Anion Gap 12 (12-20) BUN 11 (9-16) mg/dL Creatinine 0.49 L (0.5-1.4) mg/dL Estim Creat Clear Calc 155.8 Estimated GFR > 60 Random Glucose 96 (60-115) mg/dL Calcium 10.1 D (8.4-10.2) mg/dL Total Bilirubin 0.7 (0.0-1.0) mg/dL Direct Bilirubin 0.3 (0.0-0.5) mg/dL AST 21 (5-31) U/L ALT 24 (0-31) U/L Alkaline Phosphatase 133 H (39-117) U/L Troponin I High Sens (<3.5-17.0) ng/L Total Protein 6.6 (6.5-8.0) g/dL Albumin 3.3 L (3.5-5.0) g/dL Lipase 16 (8-78) U/L 09/07/22 Range/Units 04:09 WBC (4.8-10.8) X10*3/uL RBC (4.20-5.50) X10*6/uL Hgb (12.0-16.0) g/dl Hct (37.0-47.0) % MCV (80.0-98.0) fL MCH (27.0-33.0) pg MCHC (31.0-35.0) g/dl RDW (11.0-16.0) % Plt Count (160-400) X10*3/uL MPV (9.4-12.3) fL Immature Gran % (Auto) (0.0-0.4) % Neut % (Auto) (45-73) % Lymph % (Auto) (20-40) % [place] % (Auto) (2-11) % Eos % (Auto) (0-4) % Baso % (Auto) (0-2) % Lymph # (Auto) (1.2-4.9) X10*3/uL [place] # (Auto) (0.1-1.2) X10*3/uL Eos # (Auto) (0.0-0.4) X10*3/uL Baso # (Auto) (0.0-0.2) X10*3/uL Abs Immat Gran (auto) (0.00-0.03) X10*3/uL Absolute Neuts (auto) (2.0-8.3) x10*3/uL Absolute Nucleated RBC (0.0-0.012) X10*3/uL Nucleated RBC % (auto) (0.0-0.2) /100WBC D-Dimer High Sensitivty NG/ML Sodium (135-145) mmol/L Potassium (3.3-5.1) mmol/L Chloride (96-108) mmol/L Carbon Dioxide (22-29) mmol/L Anion Gap (12-20) BUN (9-16) mg/dL Creatinine (0.5-1.4) mg/dL Estim Creat Clear Calc Estimated GFR Random Glucose (60-115) mg/dL Calcium (8.4-10.2) mg/dL Total Bilirubin (0.0-1.0) mg/dL Direct Bilirubin (0.0-0.5) mg/dL AST (5-31) U/L ALT (0-31) U/L Alkaline Phosphatase (39-117) U/L Troponin I High Sens 2.8 D (<3.5-17.0) ng/L Total Protein (6.5-8.0) g/dL Albumin (3.5-5.0) g/dL Lipase (8-78) U/L Independent Interpretation I performed an independent interpretation of an: EKG (Sinus tachycardia at 120 Bpm,, normal axis deviation, normal intervals, ST-T nonspecific changes. No change from 02/04/2022) and Plain X-Ray (No acute intrathoracic pathology.) Radiology Impression Discussion of test interpretation with radiology: I have reviewed the radiologist's reading. Scores Heart Score History: -0- slightly suspicious ECG: -1- non specific repolarization disturbance Age: -0- < or = 45 Risk factory: -0- no risk factors known Troponin: -0- < or = normal limit Score: 1 Risk: 1.7% Discharge Plan Discharge Clinical Impression: Chest pain Patient Disposition: Home, Self-Care Instructions: Chest Pain (ED) Prescriptions: No Action methimazole 10 mg tablet 10 mg PO BID 30 Days Qty: 60 6RF ibuprofen 600 mg tablet 600 mg PO Q6H PRN (Reason: moderate pain) propranolol 10 mg tablet 20 mg PO Q8H 90 Days Qty: 540 3RF Referrals: Huber Alanis MD [Physician] -
[2022-09-07 06:40] VITALS: BP 137/52; PULSE 106; RESP 24; O2SAT 98
[2022-09-07 07:05] LABS: Troponin-I High Sensitivity 2.8 ng/L (<3.5-17.0)
[2022-09-07 08:02] VITALS: BP 133/49; PULSE 108; RESP 18; O2SAT 98
--- NOTE | 2022-09-07 08:07 | PC.NURSE ---
pt a&ox3. respirations even and unlabored. skin appropriate for ethnicity. pt reports no pain. vss.
== END 2022-09-07 08:33 | disposition home or self-care (01) ==
PROVIDERS: Emergency Provider Emergency Medicine
DX: R07.89 Other chest pain (principal); Z79.899 Other long term (current) drug therapy
CPT/HCPCS: 36415; 71045; 80048; 80076; 83690; 84484; 85025; 85379; 93005; 99283; 99285

== ENCOUNTER → 2022-09-07 03:55 | Outpatient (BNV) | payer SELFPAY | PROVIDERS: Emergency Provider Emergency Medicine; Visit Provider Internal Medicine Cardiovascular Disease | DX: R00.0 Tachycardia, unspecified (principal) | CPT/HCPCS: 93010 ==

== ENCOUNTER 2022-09-21 08:16 | Outpatient (AMB) | payer SELFPAY ==
--- NOTE | 2022-09-21 08:17 | A.OFFVIS_ITS ---
Intake Vital Signs 09/21/22 08:18 Height 5 ft 7 in Weight 145 lb 8.081 oz BMI 22.8 BP 130/60 Blood Pressure Location Lt brachial Position Sitting Pulse 109 H Intake Visit Reasons: s/p 2 week ED follow up/ Dr. Slater PT Intake Note: s/p week ed f/u patient still felling chest pain and s/b Seaming Inspector Required: No Allergies No Known Allergies Allergy (Verified 09/21/22 08:28) HPI s/p 2 week ED follow up/ Dr. Slater PT HPI Details Shaka is a 37 yo female with PMH of hyperthyroidism, sinus tachycardia who was recently seen in the ED for atypical CP and ruled out for ACS. Today she states reports that she does get her pressure crossed her chest which occurs randomly without specific pattern. She will notice heart palpitations as well as shortness of breath. She is tearful at this visit and tells me that she has not been able to take her medications as directed as she has no health insurance. She is out of her thyroid medication. She is only taking 10 mg of propanolol once or twice a day. She denies dizziness, presyncope, syncope, falls. No PND, orthopnea or edema. She is currently working on [employer]. She is here with her toddler son. 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 Current occupational exposures/hazards: No Cognitive needs: No Hearing needs: No Vision needs: No Review of Systems Const All systems reviewed & are unremarkable except as noted in HPI and below ENT Reports dizziness Card Reports chest pain, Denies chest pain at rest, Denies chest pain with activity, Denies rapid heart rate, Denies pedal edema, Denies edema, Denies leg edema, Denies lightheadedness, Reports palpitations, Denies dyspnea, Denies dyspnea on exertion and Denies orthopnea Resp Denies cough, Denies dyspnea and Denies dyspnea on exertion GI Denies hematochezia and Denies change in stool character Musc Denies abnormal gait, Reports limited range of motion, Reports muscle cramps, Denies muscle weakness, Denies numbness, Denies radiating pain into limb, Denies stiffness and Denies tingling Neuro Denies abnormal gait, Reports dizziness, Denies numbness and Denies tingling Endo Reports palpitations Physical Exam Vital Signs: Last Vital Signs Pulse 109 H 09/21/22 08:18 BP 130/60 09/21/22 08:18 BMI result Body Mass Index 22.8 Const General: cooperative, healthy appearing, comfortable and no acute distress Orientation/consciousness: patient oriented x3 Neck Neck: Yes normal visual inspection Resp Effort & Inspection: normal respiratory effort Auscultation: clear to auscultation bilaterally, no crackles, no rales, no rhonchi and no wheezes Cardio Jugular venous distension: no JVD Rate: tachycardic Rhythm: regular rhythm Heart sounds: S1 normal heart sound present, S2 normal heart sound present, no murmurs and no rubs Neuro General: patient oriented x3 Extrem General: Yes normal to inspection Psych Appearance: grossly normal Mental Status: mental status grossly normal Speech and movement: Normal speech and movement present Office Procedures EKG Details: Today, read by me, sinus tachycardia, nonspecific T-wave abnormality, rate 109, QTC 474 millisecond [id number], Complete Assessment & Plan Assessment & Plan (1) Chest discomfort: Code(s): R07.89 - Other chest pain Plan: Atypical sounding chest discomfort. ED evaluation and ruled out for ACS. Low cardiac risk profile. She may be feeling symptoms from sinus tachycardia. She has known history of hyperthyroidism and tells me she has not been taking her medications due to no insurance. EKG done today showing sinus tachycardia without acute ST or T-wave abnormalities, rate 109. She has been taking only a low dose of propanolol in order to preserve her medication. She is working on [employer]. On last visit echocardiogram and Holter were ordered however not completed due to insurance issues. Will request that those tests be done in a few weeks once insurance obtained. Will restart on propanolol at 20 mg b.i.d.. She is currently taking 10 mg b.i.d.. Will reach out to her brim stretcher's and see if a refill can be sent on her methimazole and follow-up visit established. She says at this time her mother will be helping her pay for her medications. The importance of thyroid treatment reviewed with her and she states understanding. Cardiology follow-up in 3 months, sooner if needed. (2) Sinus tachycardia: Code(s): R00.0 - Tachycardia, unspecified Plan: As above (3) Hyperthyroidism: Code(s): E05.90 - Thyrotoxicosis, unspecified without thyrotoxic crisis or storm Plan: Followed by endocrinology Orders: Orders ECG 3 day holter monitor 10/05/22 R00.2 - Palpitations CA echo transthoracic complete 10/05/22 E05.90 - Thyrotoxicosis, unspecified without thyrotoxic crisis or storm, R00.2 - Palpitations, R77.8 - Other specified abnormalities of plasma proteins Medications: New propranolol 20 mg PO BID 180 tabs 1RF 90 days Discontinued propranolol Discontinued Reason: Doctor's Order 20 mg (2 x 10 mg) PO Q8H 90 days 540 tabs 3RF E05.90 - Thyrotoxicosis, unspecified without thyrotoxic crisis or storm Coding Level of Care Code Est Pt Level 3 (40619) Diagnoses Chest discomfort R07.89 Sinus tachycardia R00.0 Hyperthyroidism E05.90 CPT Codes EKG - CPT: 62666-[id number], Complete ([id number]) Time Spent (min) 22 Comment Chart review, documentation, interview, assess, MD discussion
[2022-09-21 08:18] VITALS: BP 130/60; PULSE 109; BMI 22.8
== END 2022-09-21 08:45 | disposition home or self-care (01) ==
PROVIDERS: Visit Provider Nurse Practitioner Family
DX: R07.89 Other chest pain (principal); R00.0 Tachycardia, unspecified; E05.90 Thyrotoxicosis, unspecified without thyrotoxic crisis or storm
CPT/HCPCS: 93010; 99213

== ENCOUNTER → 2022-09-21 08:16 | Outpatient (BNVA) | payer OTHER, SELFPAY | PROVIDERS: Visit Provider Nurse Practitioner Family | DX: R07.89 Other chest pain (principal); R00.2 Palpitations; E05.90 Thyrotoxicosis, unspecified without thyrotoxic crisis or storm; R77.8 Other specified abnormalities of plasma proteins | CPT/HCPCS: 93005; 99212 ==

== ENCOUNTER 2022-10-26 16:11 | Outpatient (AMB) | payer SELFPAY ==
[2022-10-26 16:22] VITALS: BP 120/68; PULSE 82; TEMP 36.8; O2SAT 98; BMI 22.2
--- NOTE | 2022-10-26 16:22 | A.OFFPC_ITS ---
Vital Signs 10/26/22 16:22 Height 5 ft 7 in Weight 142 lb BMI 22.2 BP 120/68 Blood Pressure Location Rt brachial Position Sitting Pulse 82 Pulse Source Pulse Oximeter Temp 98.2 F Temp Source Oral Pulse Oximetry (%) 98 Oxygen Delivery Method Room Air Intake Visit Reasons: Found a patch on skin ( mother has history of canc Intake Note: Patient is here with concern of skin cancer, found a spot on right leg. Allergies No Known Allergies Allergy (Verified 10/26/22 17:07) Medication List - Last Reconciled 10/26/22 by Prabha Kenyon CNP methimazole 10 mg PO BID 30 days propranolol 20 mg PO BID 90 days Tobacco use date assessed: 10/26/22 Dental Screening Dental Screen Date: 10/26/22 Did you have a dental visit in the last 12 months?: Yes Did you have a dental problem in the last 6 months where you did not have access to dental care?: No Was dental information given to patient?: Patient has dentist HPI HPI Comments History of Present Illness Details 37-year-old female presents with report of non itchy spot on her right leg. She notes she is concerned for skin cancer because her mother has h/o skin cancer. She was last seen in February 2022. She she was advised to follow-up for hypothyroidism in 1 month; however, she never followed up. She notes she was seen by Cardiology for hyperthyroidism and intends to follow- up once she acquires a better health plan. 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 He Hernandez, Ileana Crabtree, Ion Zuniga and colleagues, with an educational steven from [employer]. Review of Systems Const Details: Const Denies chills, Denies fatigue, Denies fever(s), Denies headache(s) and Denies weakness ENT Denies dizziness and Denies headache(s) Card Denies chest pain, Denies lightheadedness, Denies dyspnea and Denies other (Palpitations) Resp Denies cough, Denies dyspnea, Denies wheezing and Denies other ( shortness of breath) GI Denies abdominal pain, Denies melena, Denies hematochezia, Denies change in bowel habits, Denies dyspepsia and Denies nausea Denies hematuria and Denies dysuria Musc Denies abnormal gait, Denies myalgias, Denies arthralgias, Denies numbness and Denies tingling Skin/Breast Reports as per HPI Neuro Denies abnormal gait, Denies dizziness, Denies headache(s), Denies memory loss, Denies numbness, Denies Sensory deficit (Neuro), Denies tingling and Denies weakness Psych Denies anxiety, Denies depression, Denies memory loss Endo Denies cold intolerance, Denies fatigue, Denies heat intolerance, Denies polydipsia and Denies polyuria Aller/Immun Denies wheezing Physical exam (Primary Care) Vital Signs: Last Vital Signs Temp 98.2 F 10/26/22 16:22 Pulse 82 10/26/22 16:22 BP 120/68 10/26/22 16:22 Pulse Ox 98 10/26/22 16:22 Oxygen Delivery Method Room Air 10/26/22 16:22 BMI result Body Mass Index 22.2 Tobacco/Smoking Status: Tobacco use Status Tobacco use date assessed 10/26/22 10/26/22 16:30 Patient Tobacco Use Status Never used Tobacco 10/26/22 16:30 e-Cigarette/Vaping Use Never Used 10/26/22 16:30 Thrive Assessment: Date of Thrive Assessment Date Thrive assessed 03/05/22 10/26/22 16:30 Const Other: General: no acute distress and well developed Nutritional Appearance: well nourished Orientation/consciousness: patient oriented x3 [facility] Head: Yes normocephalic and Yes atraumatic Eyes General: appearance normal, both eyes and all related structures Pupils: Equal, round and reactive pupils present EOM: EOMs intact bilaterally Resp Effort & Inspection: normal respiratory effort Auscultation: clear to auscultation bilaterally Cardio Rate: regular rate Rhythm: regular rhythm Heart sounds: S1 normal heart sound present, S2 normal heart sound present, no gallops, no murmurs and no rubs GI Palpation (GI): No Abdominal aortic bruit present, Soft to palpation, nontender, No hepatosplenomegaly present and No Rebound tenderness present Auscultation: normal bowel sounds General: Yes no CVA tenderness Back/Spine/Pelvis Back: no CVA tenderness Cervical Spine: cervical ROM normal and No Cervical spine tenderness Thoracic/Lumbar Spine: thoraco-lumbar ROM normal, No pain with thoraco-lumbar ROM, No thoracic spinal tenderness and No lumbar spinal tenderness Extrem General: Yes normal to inspection, No edema and No calf tenderness Skin General: warm and dry. Normal skin color. Normal skin turgor Lesions: no lesions Rashes: Small, v-shaped slightly raised/red rash to the middle of right thigh, no blisters, no open areas, no discharge Trauma: no lacerations or abrasions Wounds: no wounds Nails: normal Neuro General: patient oriented x3, gait normal and no focal neuro deficit Cranial nerves: Yes Equal, round and reactive pupils present Cognition (Neuro): normal cognition Gait exam (Neuro): Normal gait present Sensory Exam: No Sensory deficit (Neuro) Psych Appearance: grossly normal Affect: normal affect Attitude: cooperative Thought process: Normal thought process present Assessment and Plan Assessment & Plan (1) Rash and nonspecific skin eruption: Code(s): R21 - Rash and other nonspecific skin eruption Plan: Small, v-shaped slightly raised/red rash to the middle of right thigh, no blisters, no open areas, no discharge Appears benign Referred to dermatology given family history of skin cancer Encouraged to follow-up with PCP for hyperthyroidism as initially planned Return with worsening or new signs and symptoms Verbalized understanding and agreed with treatment plan. Orders: Referrals Dermatology Referral R21 - Rash and other nonspecific skin eruption Coding Level of Care Code Est Pt Level 3 (06115) Diagnoses Rash and nonspecific skin eruption R21
== END 2022-10-26 17:19 | disposition home or self-care (01) ==
PROVIDERS: Visit Provider Nurse Practitioner Family
DX: R21 Rash and other nonspecific skin eruption (principal)
CPT/HCPCS: 99213

== ENCOUNTER 2023-05-24 09:07 | Outpatient (AMB) | payer OTHER, SELFPAY ==
--- NOTE | 2023-05-24 09:12 | A.OFFPC_ITS ---
Vital Signs 05/24/23 09:15 Height 5 ft 7 in Weight 172 lb 8 oz BMI 27.0 BP 118/76 Blood Pressure Location Rt brachial Position Sitting Pulse 78 Pulse Source Pulse Oximeter Pulse Oximetry (%) 96 Oxygen Delivery Method Room Air Intake Visit Reasons: [facility] annual exam Intake Note: Patient is here today for a physical. Requesting for a referral to [facility] for annual women checks. 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 Required: No Ob/Gyn: Not Required per policy Accompanied by: Self / Same As Patient Allergies No Known Allergies Allergy (Verified 05/24/23 09:25) Medication List - Last Reconciled 05/24/23 by Prabha Kenyon CNP methimazole 10 mg PO BID 30 days propranolol 20 mg PO BID 90 days Tobacco use date assessed: 05/24/23 Dental Screening Dental Screen Date: 05/24/23 Did you have a dental visit in the last 12 months?: Yes Did you have a dental problem in the last 6 months where you did not have access to dental care?: No Was dental information given to patient?: Patient has dentist HPI HPI Comments History of Present Illness Details 38-year-old female presents for an exten ded physical exam She has history of hyperthyroidism and nomocystic anemia She admits to taking methimazole 10 mg twice daily and propranolol 20 mg twice daily without adverse reactions She gained 30 lb in the last 8 months. She notes that she is currently back to her normal weight after losing so much due to thyroid disease She offers no complaints and denies acute symptoms at this time She is [place] [facility] [place] Last Pap smear test was 3 years ago: Normal. She requests a referral to occupational medicine physician She states that she is not up-to-date on the current flu vaccine and declines this [facility] Medical History Thyroid eye disease Surgical History History of appendectomy Hx of wisdom tooth extraction Hx of section Family History (Updated 05/24/23 @ 09:12 by RAVEN Hawley) Father HTN (hypertension) Diabetes mellitus Mother Aneurysm Tumor Nasal tumor Sarcoidosis Social History (Updated 05/24/23 @ 09:21 by RAVEN Hawley) Housing: Apartment Alcohol intake: current Alcohol intake frequency: holidays/special occasions only Alcohol type: wine Patient Tobacco Use Status: Never used Tobacco e-Cigarette/Vaping Use: Never Used Second Hand Smoke Exposure: No service: No Current occupational status: employed 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 1. Little interest or pleasure in doing things: not at all 2. Feeling down, depressed, or hopeless: not at all 3. Trouble falling or staying asleep, or sleeping too much: not at all 4. Feeling tired or having little energy: not at all 5. Poor appetite or overeating: not at all 6. Feeling bad about yourself - or that you are a failure or have let yourself or your family down: not at all 7. Trouble concentrating on things, such as reading the newspaper or watching television: not at all 8. Moving or speaking so slowly that other people could have noticed. Or the opposite - being so fidgety or restless that you have been moving around a lot more than usual: not at all 9. Thoughts that you would be better off or of hurting yourself in some way: not at all Total score: 0 Depression Screening Interpretation: Negative Depression Screening Done: Yes Source: Developed by Drs. He Hernandez, Ileana Crabtree, Ion Zuniga and colleagues, with an educational steven from [employer]. Thrive Questionnaire Date Thrive assessed: 05/24/23 I am a: Patient What is your living situation today?: I have a steady place to live Within the past 12 months, did the food you bought not last and you didn't have the money to get more?: Never true Within the past 12 months, did you worry whether your food would run out before you got money to buy more?: Never true Do you have trouble paying for medicines?: No Do you have trouble getting transportation to medical appointments?: No Do you have trouble paying your heating and electricity bill?: No Do you have trouble taking care of your child, family member or friend?: No Do you have trouble with day-to-day activities such as bathing, preparing meals, shopping, managing finances, etc.?: No Are you currently unemployed and looking for a job?: No Are you interested in more education?: No Currently or been in a relationship where the following occur: no concerns reported THRIVE Score: 0 AUDIT C Alcohol Use Questionnaire (AUDIT-C) 1. How often do you have a drink containing alcohol?: Monthly or less Total Score: 1 JAMES-7 AMB Questionnaire JAMES-7 Date JAMES - 7 assessed: 05/24/23 Feeling nervous, anxious, or on edge: 0 = Not at all Not being able to stop or control worryin = Not at all Worrying too much about different things: 0 = Not at all Trouble relaxin = Not at all Being so restless that it is hard to sit still: 0 = Not at all Becoming easily annoyed or irritable: 0 = Not at all Feeling afraid as if something awful might happen: 0 = Not at all Total JAMES-7 score (0-4 normal; 5-9 mild; 10-14 moderate; 15-21 severe): 0 Source: Developed by Drs. He Hernandez, Ileana Crabtree, Ion Zuniga and colleagues, with an educational steven from [employer]. Review of Systems Const Details: Denies chills, Denies fatigue, Denies fever(s), Denies headache(s) and Denies weakness HEENT Denies change in vision, Denies dizziness, Denies headache(s), Denies hearing loss, Denies nasal congestion, Denies sinus pain, Denies sinus pressure and Denies sore throat Card Denies chest pain, Denies lightheadedness, Denies dyspnea and Denies other (palpitations) Resp Denies cough, Denies dyspnea and Denies wheezing GI Denies abdominal pain, Denies melena, Denies hematochezia, Denies change in bowel habits, Denies dyspepsia and Denies nausea Denies hematuria and Denies dysuria Musc Denies abnormal gait, Denies myalgias, Denies arthralgias, Denies numbness and Denies tingling Skin/Breast Denies rash, Denies unusual bruising and Denies wounds Neuro Denies abnormal gait, Denies dizziness, Denies headache(s), Denies memory loss, Denies numbness, Denies Sensory deficit (Neuro), Denies tingling and Denies weakness Psych Denies anxiety, Denies depression and Denies memory loss Endo Denies cold intolerance, Denies fatigue, Denies heat intolerance, Denies polydipsia and Denies polyuria Krzysztof/Lymph Denies easy bleeding and Denies easy bruising Aller/Immun Denies wheezing Physical exam (Primary Care) Vital Signs: Last Vital Signs Pulse 78 05/24/23 09:15 BP 118/76 05/24/23 09:15 Pulse Ox 96 05/24/23 09:15 Oxygen Delivery Method Room Air 05/24/23 09:15 BMI result Body Mass Index 27.0 Tobacco/Smoking Status: Tobacco use Status Tobacco use date assessed 05/24/23 05/24/23 09:17 Patient Tobacco Use Status Never used Tobacco 05/24/23 09:21 e-Cigarette/Vaping Use Never Used 05/24/23 09:21 PHQ-9: PHQ-9 Score PHQ-9: Total score 0 05/24/23 09:17 Depression Screening Interpretation: Negative Thrive Assessment: Date of Thrive Assessment Date Thrive assessed 05/24/23 05/24/23 09:17 Currently or been in a relationship where the following occur: no concerns reported Const Other: General: no acute distress, well developed, alert and awake Nutritional Appearance: well nourished Orientation/consciousness: patient oriented x3 HENMT Head: Yes normocephalic and Yes atraumatic Ears: hearing grossly normal bilaterally and TM's normal bilaterally General nose exam: Normal external nose present and Normal nares present Mouth: Normal oral and palatal mucosa present and moist mucous membranes Teeth and gingiva: dentition normal Throat: Yes oropharynx normal Eyes Pupils: Equal, round and reactive pupils present and Pupil accommodation reflex normal EOM: EOMs intact bilaterally Neck Neck: Yes normal visual inspection, Yes no lymphadenopathy and Yes trachea midline Thyroid: Thyroid normal Carotids: no bruits Lymphatic: no lymphadenopathy noted Chest Chest palpation & inspection: normal inspection of the chest Resp Effort & Inspection: normal respiratory effort Auscultation: clear to auscultation bilaterally Cardio Rate: regular rate Rhythm: regular rhythm Heart sounds: S1 normal heart sound present, S2 normal heart sound present, no gallops, no murmurs and no rubs Bruits: no abdominal aortic bruits and no carotid bruits GI Palpation (GI): No Abdominal aortic bruit present, Soft to palpation, nontender, No hepatosplenomegaly present and No Rebound tenderness present Auscultation: normal bowel sounds General: Yes no CVA tenderness Back/Spine/Pelvis Back: no CVA tenderness Cervical Spine: cervical ROM normal and No Cervical spine tenderness Thoracic/Lumbar Spine: thoraco-lumbar ROM normal, No pain with thoraco-lumbar ROM, No thoracic spinal tenderness and No lumbar spinal tenderness Skin General: warm and dry. Normal skin color. Normal skin turgor Lesions: no lesions Rashes: no rashes Trauma: no lacerations or abrasions Wounds: no wounds Nails: normal Neuro General: patient oriented x3, gait normal and CN's II-XI intact bilaterally Cranial nerves: Yes Equal, round and reactive pupils present Cognition (Neuro): normal cognition Gait exam (Neuro): Normal gait present Motor exam (neuro): 5/5 motor strength present throughout Sensory Exam: No Sensory deficit (Neuro) Deep tendon reflexes (DTR's): Right patellar reflex intensity grade: 2+ and Left patellar reflex intensity grade: 2+ Extrem General: Yes normal to inspection, No edema and No calf tenderness Psych Appearance: grossly normal Affect: normal affect Attitude: cooperative Thought process: Normal thought process present Assessment and Plan Assessment & Plan (1) Normal physical examination, routine: Code(s): Z00.00 - Encounter for general adult medical examination without abnormal findings Plan: No significant physical restrictions or limitations noted Continue current treatment regimen Healthy diet and routine exercise encouraged Continue follow-up with endocrinology and Cardiology as planned Advised to get labs done and follow-up for telehealth visit in 2-3 weeks for labs review Return sooner with symptoms or concerns Verbalized understanding and agreed with the plan (2) Pap smear for cervical cancer screening: Code(s): Z12.4 - Encounter for screening for malignant neoplasm of cervix Plan: Her last Pap smear test was over 3 years ago Ref[place] [facility] [place] (3) Laboratory tests ordered as part of a complete physical exam (CPE): Code(s): Z00.00 - Encounter for general adult medical examination without abnormal findings Plan: Fasting labs ordered as part of a complete physical exam. Advised to fast for at least 10 hours before getting labs drawn. May drink water Verbalized understanding and agreed with treatment plan. Orders: Orders Complete Blood Count no Diff Today Z00.00 - Encounter for general adult medical examination without abnormal findings UA CC w/rflx Micro + Cult Today Z00.00 - Encounter for general adult medical examination without abnormal findings Comprehensive [place]. Panel Fast Today Z00.00 - Encounter for general adult medical examination without abnormal findings Lipid Panel Today Z00.00 - Encounter for general adult medical examination without abnormal findings TSH reflex Free T4 Today Z00.00 - Encounter for general adult medical examination without abnormal findings Referrals [facility] Referral Z12.4 - Encounter for screening for malignant neoplasm of cervix Medications: Refilled methimazole 10 mg PO BID 30 days 60 tabs 6RF E05.90 - Thyrotoxicosis, unspecified without thyrotoxic crisis or storm propranolol 20 mg PO BID 90 days 180 tabs 1RF Coding Level of Care Code Est Pt Prev Care 18-39y(00077) Diagnoses Normal physical examination, routine Z00.00 Pap smear for cervical cancer screening Z12.4 Laboratory tests ordered as part of a complete physical exam (CPE) Z00.00
[2023-05-24 09:15] VITALS: BP 118/76; PULSE 78; O2SAT 96; BMI 27.0
== END 2023-05-24 09:46 | disposition home or self-care (01) ==
PROVIDERS: PCP Nurse Practitioner Family; Visit Provider Nurse Practitioner Family
DX: Z00.00 Encounter for general adult medical examination without abnormal findings (principal)
CPT/HCPCS: 99395

== ENCOUNTER 2023-05-24 09:47 | Outpatient (REF) | payer OTHER, SELFPAY ==
[2023-05-24 11:38] LABS: Appearance Urine Clear; Color Urine Yellow; Glucose Urine UA Negative (Negative); Leukocyte Esterase Urine Negative (Negative); Nitrite Urine Negative (Negative); PH 7.5 (5.0-9.0); Specific Gravity - Urine <= 1.005 (1.005-1.025); Urine Blood Negative (Negative); Urine Ketones Negative (Negative); Urine Protein Negative (Neg-Trace)
[2023-05-24 12:18] LABS: Hematocrit 38.9 % (37.0-47.0); Hemoglobin 13.3 g/dl (12.0-16.0); Mean Corpuscular HGB Conc 34.2 g/dl (31.0-35.0); Mean Corpuscular Hemoglobin 30.9 pg (27.0-33.0); Mean Corpuscular Volume 90.3 fL (80.0-98.0); Mean Platelet Volume 9.5 fL (9.4-12.3); Platelet Count 279 X10*3/uL (160-400); Red Blood Count 4.31 X10*6/uL (4.20-5.50); Red Cell Distribution Width 11.7 % (11.0-16.0); White Blood Count 7.8 X10*3/uL (4.8-10.8)
[2023-05-24 12:34] LABS: Alanine Aminotransferase 18 U/L (0-31); Albumin Level 3.9 g/dL (3.5-5.0); Alkaline Phosphatase 130 U/L (39-117); Anion Gap 9 (12-20); Aspartate Amino Transferase 17 U/L (5-31); Bilirubin Total 0.4 mg/dL (0.0-1.0); Blood Urea Nitrogen 6 mg/dL (9-16); Calcium 9.7 mg/dL (8.4-10.2); Carbon Dioxide 23 mmol/L (22-29); Chloride 110 mmol/L (96-108); Cholesterol 193 mg/dL (<200); Estimated Glomerular Filt Rate > 60; Glucose Fasting 86 mg/dL (60-99); HDL Cholesterol 72 mg/dL (>40); LDL Cholesterol Calculated 102 mg/dL (<100); Potassium 4.1 mmol/L (3.3-5.1); Sodium 138 mmol/L (135-145); Total Protein 8.1 g/dL (6.5-8.0); Triglycerides 98 mg/dL (<150)
[2023-05-24 12:56] LABS: TSH reflex Free T4 < 0.01 uIU/mL (0.32-4.0)
[2023-05-24 13:49] LABS: Free T4 (Free Thyroxine) 2.23 ng/dL (0.71-1.85)
== END 2023-05-24 09:48 | disposition home or self-care (01) ==
LOC: HO.WFDLDS 09:47
PROVIDERS: Visit Provider Nurse Practitioner Family
DX: Z00.00 Encounter for general adult medical examination without abnormal findings (principal); Z13.220 Encounter for screening for lipoid disorders; Z13.29 Encounter for screening for other suspected endocrine disorder
CPT/HCPCS: 36415; 80053; 80061; 81003; 84439; 84443; 85027

== ENCOUNTER → 2023-05-27 09:28 | Outpatient (REF) | payer OTHER, SELFPAY ==
--- NOTE | 2023-05-27 09:35 | HM_ITS ---
Conclusion: 1. Patient was monitored for total period of 2 days 2. Baseline was normal sinus rhythm with average heart of 91 beats per minute 3. No significant arrhythmias or pauses noted 4. No patient reported events MTDD
--- NOTE | 2023-05-27 09:35 | CA_ITS ---
Transthoracic Echocardiogram Patient (Last, First, Middle): Shaka Wu, Gender: Female Date of : 1985 Age: 38 Procedure Date: 05/27/2023 Procedure Type: Transthoracic Echocardiogram Location: OP Height: 170.18 cm Weight: 78.02 kg BSA: 1.90 m2 Heart Rate: bpm BP: 117 / 80 mmHg Data Processing Manager: PIETRO Referring MD: Mariam Ross PARARESCUE MANAGERIsak Symptoms: E05.90 - Thyrotoxicosis, unspecified without thyrotoxic crisis or storm Study Quality: Adequate Conclusions: - Normal left ventricular size, thickness, systolic function, and wall motion. The visually estimated ejection fraction is between 60-65%. Diastolic function is normal for age. Normal GLS -21%. - Normal right ventricular cavity size and systolic function. - Mildly elevated velocities across aortic valve due to hyperthyroidism-no evidence of stenosis. Findings Left Ventricle Normal left ventricular size, thickness, systolic function, and wall motion. The visually estimated ejection fraction is between 60-65%. Diastolic function is normal for age. Normal GLS -21%. Right Ventricle Normal right ventricular cavity size and systolic function. Atria The left atrium is normal in size. The right atrium is normal in size. Aortic Valve Normal aortic valve structure and function. There is no aortic valve stenosis. There is no aortic valve regurgitation. Mildly elevated velocities across aortic valve due to hyperthyroidism-no evidence of stenosis. Mitral Valve Likely normal mitral valve structure and function. There is mild mitral valve regurgitation. There is no mitral valve stenosis. Pulmonic Valve Normal pulmonic valve structure and function. There is no pulmonic valve regurgitation. Tricuspid Valve Normal tricuspid valve structure. There is trace tricuspid valve regurgitation. Tricuspid regurgitation envelope is inadequate for calculation of right ventricular systolic pressure. Normal right atrial pressure. Great Vessels All visible segments of the aorta are normal in size. The visualized portions of the pulmonary artery and branches are normal. Venous The inferior vena cava is normal in size and collapses greater than 50% with inspiration. Pericardium/Pleural There is no evidence of pericardial effusion. Prior Study Comparison No prior study available for comparison. Measurements 2D Linear Measurements IVSd: 0.65 0.6-0.9/0.6-1.0 cm LVIDd: 4.89 3.9-5.3/4.2-5.9 cm LVIDd Index: 2.57 2.4-3.2/2.2-3.1 cm/m2 LVIDs: 3.20 2.0-3.6 cm LVPWd: 0.81 0.7-1.1 cm LA Diam: 3.40 2.7-3.8/3.0-4.0 cm LAIDs Index: 1.79 1.5-2.3 cm/m2 LV Mass: 144.56 67-162/88-224 g LV Mass Index: 76.08 43-95/49-115 g/m2 LVOT Diam: 1.90 3.0+(-)1.3 cm 2D Systolic Function EF 4C: 64.30 >55% EF 2C: 61.20 >55% EF BiP: 60.80 >55% Mitral Valve MV Pk E: 1.02 MV PK A: 0.44 MV Decel Time: 185.00 E/A: 2.30 E'Lateral: 13.50 E'Medial: 11.70 E/E' Med: 8.70 E/E' Lat: 7.60 PHT: 54.00 MVA PHT: 4.07 Decel Jones: 5.50 MR Vol - PW Dopp: 20.76 MR VTI: 1.73 MR ERO: 12.00 MR Alias Reggie: 0.40 MR RAD: 0.50 Aortic Valve AoV Pk Reggie: 2.03 AoV Mn Reggie: 1.34 AoV VTI: 0.41 AoV Pk Grad: 16.00 Aov Mn Grad: 8.00 HUNTER Cont.VTI: 2.30 LVOT LVOT Pk Reggie: 1.61 LVOT Mn Reggie: 1.07 LVOT VTI: 0.33 LVOT Pk Grad: 10.00 LVOT Mn Grad: 5.00 LVOT Diam: 1.90 LVOT Area: 2.84 Diastolic Function MV Pk E: 1.02 MV Pk A: 0.44 E/A: 2.30 E'Medial: 11.70 E/E' Med: 8.70 E' Laterial: 13.50 E/E' Lat: 7.60 Right Ventricle TAPSE (mm): 26.10 TVS' Reggie: 11.20 Tricuspid Valve RA Press: 3.00 Great Vessels Aorta Sinus of Valsalva: 2.40 2.0-3.[address] Ridge: 2.00 1.7-3.4 cm Ao Asc: 2.40 2.1-3.4 cm Ao Arch: 2.00 Updated in Other Vendor System with Status of Final Huber Alanis MD electronically signed on 05/29/2023 2:32:26 PM with status of Final
== END ==
LOC: HO.CARD 09:28
PROVIDERS: PCP Nurse Practitioner Family; Visit Provider Nurse Practitioner Family
DX: R00.2 Palpitations (principal); I49.9 Cardiac arrhythmia, unspecified; R77.8 Other specified abnormalities of plasma proteins; E05.90 Thyrotoxicosis, unspecified without thyrotoxic crisis or storm
CPT/HCPCS: 93225; 93306; 93356

== ENCOUNTER → 2023-05-27 09:35 | Outpatient (BNV) | payer OTHER, SELFPAY | PROVIDERS: PCP Nurse Practitioner Family; Visit Provider Internal Medicine Cardiovascular Disease | DX: R00.0 Tachycardia, unspecified (principal) | CPT/HCPCS: 93227; 93306; 93356 ==

== ENCOUNTER 2023-06-07 14:35 | Outpatient (AMB) | payer OTHER, SELFPAY ==
--- NOTE | 2023-06-07 14:32 | A.OFFPC_ITS ---
Intake Visit Reasons: Follow up labs [facility] Required: No Allergies No Known Allergies Allergy (Verified 06/07/23 15:36) Medication List - Last Reconciled 06/07/23 by Prabha Kenyon CNP methimazole 30 mg (3 x 10 mg) PO DAILY 90 days propranolol 20 mg PO BID 90 days Tobacco use date assessed: 05/24/23 Dental Screening Dental Screen Date: 05/24/23 HPI HPI Comments History of Present Illness Details 38-year-old female presents for [facility] visit for review of recent blood work She admits to taking her medications as prescribed without adverse reactions. She states she is feels more energetic since starting new dose of methimazole She offers no complaints and denies acute symptoms at this time Recent TSH and T4 levels today are 0.01 and [address] Schmitz, worldwide chief creative officer, Methimazole was increased to 30 mg daily and patient advised to repeat TSH, free T4, free T3, liver panel, and CBC in 4 weeks prior to patient follow-up visit with endocrinology. Recent chloride and alkaline phosphate slightly elevated [facility] Medical History (Reviewed 10/26/22 @ 16:25 by Lana Solitario [facility]) Thyroid eye disease Surgical History History of appendectomy Hx of wisdom tooth extraction Hx of section Family History (Updated 05/24/23 @ 09:12 by RAVEN Hawley) Father HTN (hypertension) Diabetes mellitus Mother Aneurysm Tumor Nasal tumor Sarcoidosis Social History (Updated 05/24/23 @ 09:21 by RAVEN Hawley) Housing: Apartment Alcohol intake: current Alcohol intake frequency: holidays/special occasions only Alcohol type: wine Patient Tobacco Use Status: Never used Tobacco e-Cigarette/Vaping Use: Never Used Second Hand Smoke Exposure: No service: No Current occupational status: employed 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 He Hernandez, Ileana Crabtree, Ion Zuniga and colleagues, with an educational steven from [employer]. Review of Systems Const Details: Const Denies chills, Denies fatigue, Denies fever(s), Denies headache(s) and Denies weakness ENT Denies dizziness and Denies headache(s) Card Denies chest pain, Denies lightheadedness, Denies dyspnea and Denies other (Palpitations) Resp Denies cough, Denies dyspnea, Denies wheezing and Denies other ( shortness of breath) GI Denies abdominal pain, Denies melena, Denies hematochezia, Denies change in bowel habits, Denies dyspepsia and Denies nausea Denies hematuria and Denies dysuria Musc Denies abnormal gait, Denies myalgias, Denies arthralgias, Denies numbness and Denies tingling Skin/Breast Denies rash, Denies unusual bruising and Denies wounds Neuro Denies abnormal gait, Denies dizziness, Denies headache(s), Denies memory loss, Denies numbness, Denies Sensory deficit (Neuro), Denies tingling and Denies weakness Psych Denies anxiety, Denies depression, Denies memory loss Endo Denies cold intolerance, Denies fatigue, Denies heat intolerance, Denies polydipsia and Denies polyuria Aller/Immun Denies wheezing Physical exam (Primary Care) Tobacco/Smoking Status: Tobacco use Status Tobacco use date assessed 05/24/23 06/07/23 14:32 Patient Tobacco Use Status Never used Tobacco 06/07/23 14:32 e-Cigarette/Vaping Use Never Used 06/07/23 14:32 Thrive Assessment: Date of Thrive Assessment Date Thrive assessed 05/24/23 06/07/23 14:32 Const Other: Telehealth visit. No physical exam Telehealth Telehealth Telehealth Platform: Telephone Location of provider rendering services: practice address Location of patient: address on file Patient Identification confirmed using: Name, : Yes Telehealth method: voice only Patient verbally consented to treatment: Yes Patient verbally consented to billing insurance company: Yes Patient informed of any privacy concerns related to visit: Yes Minutes spent on Phone/Video with Pt.: 15 Assessment and Plan Assessment & Plan (1) Hyperthyroidism: Code(s): E05.90 - Thyrotoxicosis, unspecified without thyrotoxic crisis or storm Plan: Recent lab results reviewed with the patient; unremarkable findings except for low TSH, 0.01, and elevated T4 level, 2.23 Methimazole was increased to 30 mg daily per endocrinology Patient advised to repeat TSH, free T4, free T3, liver panel, and CBC in 4 prior to endocrinology appointment Follow-up with endocrinology as planned Schedule next physical exam a year from last physical Return sooner with symptoms or concerns She verbalized understanding and agreed with treatment plan Coding Level of Care Code Tele Est Pt Level 2 (39959) Diagnoses Hyperthyroidism E05.90
== END 2023-06-07 16:16 | disposition home or self-care (01) ==
LOC: HO.HMGFM 14:35
PROVIDERS: PCP Nurse Practitioner Family; Visit Provider Nurse Practitioner Family
DX: E05.90 Thyrotoxicosis, unspecified without thyrotoxic crisis or storm (principal)
CPT/HCPCS: 99212

== ENCOUNTER → 2023-06-10 09:20 | Outpatient (BNVA) | payer OTHER, SELFPAY | PROVIDERS: PCP Nurse Practitioner Family; Visit Provider Nurse Practitioner Family | DX: R07.89 Other chest pain (principal); R00.0 Tachycardia, unspecified; E05.90 Thyrotoxicosis, unspecified without thyrotoxic crisis or storm; Z79.899 Other long term (current) drug therapy | CPT/HCPCS: 99212 ==

== ENCOUNTER 2023-06-10 09:21 | Outpatient (AMB) | payer OTHER, SELFPAY ==
[2023-06-10 09:21] VITALS: BP 114/62; PULSE 70; BMI 26.9
--- NOTE | 2023-06-10 09:21 | MHC.OFFVIS ---
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 Today she states reports that she has been doing well recently. She has not been getting chest pressure like she had in the past. She is not having any concerning heart palpitations. She has been taking her propranolol as directed. She recently had an increase in her methimazole dose and she reports increased energy and tolerance with activities. No shortness of breath, lightheadedness, presyncope, syncope, falls. No PND, orthopnea or edema. She has an upcoming visit with endocrinology. She was not able to get the radiation thyroid ablation due to being a single parent of a 2-year-old child. 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 Current occupational exposures/hazards: No Cognitive needs: No Hearing needs: No Vision needs: Yes (Glasses) Review of Systems Const All systems reviewed & are unremarkable except as noted in HPI and below ENT Denies dizziness Card Denies chest pain, Denies chest pain at rest, Denies chest pain with activity, Denies rapid heart rate, Denies pedal edema, Denies edema, Denies leg edema, Denies lightheadedness, Denies palpitations, Denies dyspnea, Denies dyspnea on exertion and Denies orthopnea Resp Denies cough, Denies dyspnea and Denies dyspnea on exertion GI Denies hematochezia and Denies change in stool character Musc Denies abnormal gait, Denies limited range of motion, Denies muscle cramps, Denies muscle weakness, Denies numbness, Denies radiating pain into limb, Denies stiffness and Denies tingling Neuro Denies abnormal gait, Denies dizziness, Denies numbness and Denies tingling Endo Denies palpitations Physical Exam Vital Signs: Last Vital Signs Pulse 70 06/10/23 09:21 BP 114/62 06/10/23 09:21 BMI result Body Mass Index 26.9 Const General: cooperative, healthy appearing, comfortable and no acute distress Orientation/consciousness: patient oriented x3 Neck Neck: Yes normal visual inspection and Yes no JVD Resp Effort & Inspection: normal respiratory effort Auscultation: clear to auscultation bilaterally, no crackles, no rales, no rhonchi and no wheezes Cardio Jugular venous distension: no JVD Rate: regular rate Rhythm: regular rhythm Heart sounds: S1 normal heart sound present, S2 normal heart sound present, no murmurs and no rubs Neuro General: patient oriented x3 Extrem General: Yes normal to inspection and No no pedal edema Psych Appearance: grossly normal Mental Status: mental status grossly normal Speech and movement: Normal speech and movement present Assessment & Plan Assessment & Plan (1) Chest discomfort: Code(s): R07.89 - Other chest pain Category: Medical Plan: Prior reports of Atypical sounding chest discomfort. ED evaluation and ruled out for ACS. Low cardiac risk profile. She may be feeling symptoms from sinus tachycardia. She has known history of hyperthyroidism and tells me she has not been taking her medications due to no insurance. EKG done last visit showed sinus tachycardia without acute ST or T-wave abnormalities, rate 109. Her propanolol dose was increased to 20 mg b.i.d. from 10 mg b.i.d. at that time. Echocardiogram was done 05/27/2023 showing EF 60-65%, mild elevation in the velocity across the aortic valve related to hyperthyroidism. Holter monitor done 05/27/2023 for 2 days shows sinus rhythm with average heart rate 91, no arrhythmia or pauses. Today she reports she has been feeling much better overall. Pulse is normal range. She is still hyperthyroid with most recent labs showing TSH less than 0.01, free T4 2.23. She is following with endocrinology and has an upcoming visit. Continue current propranolol. Cardiology follow-up in 6 months, sooner if needed. (2) Sinus tachycardia: Code(s): R00.0 - Tachycardia, unspecified Category: Medical Plan: As above (3) Hyperthyroidism: Code(s): E05.90 - Thyrotoxicosis, unspecified without thyrotoxic crisis or storm Category: Medical Plan: Followed by endocrinology Plan Time spent on chart review, documentation, interview and assessment Coding Level of Care Code Est Pt Level 3 (19189) Diagnoses Chest discomfort R07.89 Sinus tachycardia R00.0 Hyperthyroidism E05.90 Time Spent (min) 24
== END 2023-06-10 09:37 | disposition home or self-care (01) ==
PROVIDERS: PCP Nurse Practitioner Family; Visit Provider Nurse Practitioner Family
DX: R07.89 Other chest pain (principal); R00.0 Tachycardia, unspecified; E05.90 Thyrotoxicosis, unspecified without thyrotoxic crisis or storm
CPT/HCPCS: 99213

== ENCOUNTER → 2023-06-16 16:15 | Outpatient (BNVA) | payer OTHER, SELFPAY | PROVIDERS: PCP Nurse Practitioner Family; Visit Provider Internal Medicine Endocrinology, Diabetes & Metabolism | DX: E05.90 Thyrotoxicosis, unspecified without thyrotoxic crisis or storm (principal) | CPT/HCPCS: 99212 ==

== ENCOUNTER 2023-07-26 11:58 | Outpatient (REF) | payer OTHER, SELFPAY ==
[2023-07-26 14:32] LABS: Hematocrit 37.4 % (37.0-47.0); Hemoglobin 12.7 g/dl (12.0-16.0); Mean Corpuscular Hemoglobin 31.1 pg (27.0-33.0); Mean Corpuscular Volume 91.7 fL (80.0-98.0); Mean Platelet Volume 9.6 fL (9.4-12.3); Platelet Count 253 X10*3/uL (160-400); Red Blood Count 4.08 X10*6/uL (4.20-5.50); Red Cell Distribution Width 12.9 % (11.0-16.0); White Blood Count 7.4 X10*3/uL (4.8-10.8)
[2023-07-26 15:20] LABS: Alanine Aminotransferase 12 U/L (0-31); Albumin Level 3.6 g/dL (3.5-5.0); Alkaline Phosphatase 109 U/L (39-117); Aspartate Amino Transferase 13 U/L (5-31); Bilirubin Direct 0.1 mg/dL (0.0-0.5); Bilirubin Total 0.3 mg/dL (0.0-1.0); Free T4 (Free Thyroxine) 1.01 ng/dL (0.71-1.85); Thyroid Stimulating Hormone < 0.01 uIU/mL (0.32-4.0); Total Protein 7.5 g/dL (6.5-8.0)
[2023-07-27 10:23] LABS: Triiodothyronine T3 Free 3.9 pg/mL (2.3-4.2)
== END 2023-07-26 11:59 | disposition home or self-care (01) ==
LOC: HO.WFDLDS 11:58
PROVIDERS: Visit Provider Internal Medicine Endocrinology, Diabetes & Metabolism
DX: E05.90 Thyrotoxicosis, unspecified without thyrotoxic crisis or storm (principal)
CPT/HCPCS: 36415; 80076; 84439; 84443; 84481; 85027

== ENCOUNTER 2023-12-01 13:29 | Outpatient (AMB) | payer OTHER, SELFPAY ==
--- NOTE | 2023-12-01 13:33 | MHC.PC.OV ---
Vital Signs 12/01/23 13:54 Height 5 ft 7 in Weight 194 lb 2 oz BMI 30.4 BP 118/68 Blood Pressure Location Rt brachial Position Sitting Respiration 16 Pulse 97 Pulse Source Pulse Oximeter Temp 98.7 F Temp Source Oral Pulse Oximetry (%) 97 Oxygen Delivery Method Room Air Intake Visit Reasons: Possiblepneumonia Intake Note: patient here c/o possible pneumonia. Sport Psychologist Required: No Is last menstrual period known: Yes Last menstrual period: 11/03/23 Post menopausal: No Patient : No Allergies No Known Allergies Allergy (Verified 12/01/23 13:53) Medication List - Last Reconciled 12/01/23 by Prabha Kenyon CNP methimazole 30 mg (3 x 10 mg) PO DAILY 90 days propranolol 20 mg PO BID 90 days Tobacco use date assessed: 12/01/23 Dental Screening Dental Screen Date: 05/24/23 HPI HPI Comments History of Present Illness Details 38-year-old female presents with complaints of headache, cough with greenish sputum, difficulty breathing, chest and nasal congestion. Her symptoms have been ongoing for a week and half. Cough is persistent at night. Her symptoms have been refractory Mucinex, DaQuil, and supportive therapy. She notes postitive sick contact. She has not done viral testing. No constitutional symptoms. 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 Current occupational exposures/hazards: No Cognitive needs: No Hearing needs: No Vision needs: Yes (Glasses) Female Reproductive History Menstrual Date of last menstrual period: 11/03/23 Questionnaire Thrive Questionnaire Date Thrive assessed: 05/24/23 I am a: Patient What is your living situation today?: I have a steady place to live Within the past 12 months, did the food you bought not last and you didn't have the money to get more?: Never true Within the past 12 months, did you worry whether your food would run out before you got money to buy more?: Never true Do you have trouble paying for medicines?: No Do you have trouble getting transportation to medical appointments?: No Do you have trouble paying your heating and electricity bill?: No Do you have trouble taking care of your child, family member or friend?: No Do you have trouble with day-to-day activities such as bathing, preparing meals, shopping, managing finances, etc.?: No Are you currently unemployed and looking for a job?: No Are you interested in more education?: No Please select the resources that you would like help with: None Currently or been in a relationship where the following occur: No concerns reported THRIVE Score: 0 AUDIT C Alcohol Use Questionnaire (AUDIT-C) 1. How often do you have a drink containing alcohol?: Monthly or less 2. How many drinks containing alcohol do you have on a typical day when you are drinking?: 1 or 2 3. How often do you have six or more drinks on one occasion?: Never Total Score: 1 JAMES-7 AMB Questionnaire JAMES-7 Date JAMES - 7 assessed: 05/24/23 Feeling nervous, anxious, or on edge: 0 = Not at all Not being able to stop or control worryin = Not at all Worrying too much about different things: 0 = Not at all Trouble relaxin = Not at all Being so restless that it is hard to sit still: 0 = Not at all Becoming easily annoyed or irritable: 0 = Not at all Feeling afraid as if something awful might happen: 0 = Not at all Total JAMES-7 score (0-4 normal; 5-9 mild; 10-14 moderate; 15-21 severe): 0 Source: Developed by Drs. He Hernandez, Ileana Crabtree, Ion Zuniga and colleagues, with an educational steven from [employer]. Review of Systems Const Details: Const Denies chills, Denies fatigue, Denies fever(s), Denies headache(s) and Denies weakness ENT Reports as per HPI Card Denies chest pain, Denies lightheadedness, Denies dyspnea and Denies other (Palpitations) Resp Reports cough, Denies dyspnea, Denies wheezing and Denies other ( shortness of breath) GI Denies abdominal pain, Denies melena, Denies hematochezia, Denies change in bowel habits, Denies dyspepsia and Denies nausea Denies hematuria and Denies dysuria Musc Denies abnormal gait, Denies myalgias, Denies arthralgias, Denies numbness and Denies tingling Skin/Breast Denies rash, Denies unusual bruising and Denies wounds Neuro Denies abnormal gait, Denies dizziness, Denies headache(s), Denies memory loss, Denies numbness, Denies Sensory deficit (Neuro), Denies tingling and Denies weakness Psych Denies anxiety, Denies depression, Denies memory loss Endo Denies cold intolerance, Denies fatigue, Denies heat intolerance, Denies polydipsia and Denies polyuria Aller/Immun Denies wheezing Physical exam (Primary Care) Tobacco/Smoking Status: Tobacco use Status Tobacco use date assessed 05/24/23 12/01/23 13:35 Patient Tobacco Use Status Never used Tobacco 12/01/23 13:35 e-Cigarette/Vaping Use Never Used 12/01/23 13:35 PHQ-9: PHQ-9 Score PHQ-9: Total score 12 12/01/23 13:35 Thrive Assessment: Date of Thrive Assessment Date Thrive assessed 05/24/23 12/01/23 13:35 Currently or been in a relationship where the following occur: No concerns reported Const Other: General: no acute distress and well developed Nutritional Appearance: well nourished Orientation/consciousness: patient oriented x3 HENMT Head is normocephalic Bilateral ear canal and TM are normal Nasal turbinates with significant erythema and edema Oropharynx are pink and moist Sinuses are nontender with palpation No auricular or cervical lymphadenopathy Eyes General: appearance normal, both eyes and all related structures Pupils: Equal, round and reactive pupils present EOM: EOMs intact bilaterally Resp Effort & Inspection: normal respiratory effort Auscultation: clear to auscultation bilaterally Cardio Rate: regular rate Rhythm: regular rhythm Heart sounds: S1 normal heart sound present, S2 normal heart sound present, no gallops, no murmurs and no rubs GI Palpation (GI): No Abdominal aortic bruit present, Soft to palpation, nontender, No hepatosplenomegaly present and No Rebound tenderness present Auscultation: normal bowel sounds General: Yes no CVA tenderness Back/Spine/Pelvis Back: no CVA tenderness Extrem General: Yes normal to inspection, No edema and No calf tenderness Skin General: warm and dry. Normal skin color. Normal skin turgor Neuro General: patient oriented x3, gait normal and no focal neuro deficit Cranial nerves: Yes Equal, round and reactive pupils present Cognition (Neuro): normal cognition Gait exam (Neuro): Normal gait present Sensory Exam: No Sensory deficit (Neuro) Psych Appearance: grossly normal Affect: normal affect Attitude: cooperative Thought process: Normal thought process present Coding Level of Care Code Est Pt Level 3 (63933) Diagnoses Upper respiratory tract infection J06.9 Assessment & Plan Assessment & Plan (1) Upper respiratory tract infection: Code(s): J06.9 - Acute upper respiratory infection, unspecified Category: Medical Plan: Likely viral illness though possibly allergies. There may also be superimposed bacterial infection Viral illness There is no antibiotic medication for viruses.? They must run their course.? Most average 5-7 days but 7-10 days is not uncommon and up to 14 days is still possible.? A cough is often the last symptom to resolve and this can last for weeks in some cases. Rest Hydrate well -? Drink plenty of fluids.? Especially water. Tylenol or ibuprofen for muscle aches, headache, fever/discomfort May take Zyrtec 10 mg daily Codeine-guaifenesin as prescribed for cough Zyrtec as prescribed Cannot rule out COVID-19/RSV/Flu infection Nasal swab acquired and will be sent to the lab Return for new or worsening symptoms Verbalized understanding and agreed with treatment plan. Orders: Orders SARS-CoV2/FLU/RSV Today J06.9 - Acute upper respiratory infection, unspecified Medications: New codeine-guaifenesin 10-100 mg/5 mL 5 mL PO Q6H PRN 118 mL 0RF allergy symptoms azithromycin (Zithromax TRI-[place]) 500 mg PO DAILY 6 days 6 tabs 0RF
[2023-12-01 13:54] VITALS: BP 118/68; PULSE 97; RESP 16; TEMP 37.1; O2SAT 97; BMI 30.4
== END 2023-12-01 14:16 | disposition home or self-care (01) ==
PROVIDERS: PCP Nurse Practitioner Family; Visit Provider Nurse Practitioner Family
DX: J06.9 Acute upper respiratory infection, unspecified (principal)

== ENCOUNTER 2023-12-01 13:29 | Outpatient (REF) | payer OTHER, SELFPAY ==
[2023-12-01 18:59] LABS: Influenza A PCR NEGATIVE (Negative); Influenza B PCR NEGATIVE (Negative); Resp Syncy Virus RNA Qual PCR NEGATIVE (Negative); SARS COV2 PCR INHOUSE NEGATIVE (Negative)
== END 2023-12-01 13:30 | disposition home or self-care (01) ==
LOC: HO.LAB 13:29
PROVIDERS: PCP Nurse Practitioner Family; Visit Provider Nurse Practitioner Family
DX: J06.9 Acute upper respiratory infection, unspecified (principal)
CPT/HCPCS: 0241U; 99212

== ENCOUNTER 2023-12-01 14:22 | Outpatient (REF) | payer OTHER, SELFPAY ==
[2023-12-01 17:39] LABS: MANUAL DIFF FLAG NO
[2023-12-01 17:44] LABS: Basophils Percent Auto 0.3 % (0-2); Eosinophils Absolute Auto 0.2 X10*3/uL (0.0-0.4); Eosinophils Percent Auto 2.2 % (0-4); Hematocrit 36.8 % (37.0-47.0); Hemoglobin 12.2 g/dl (12.0-16.0); Imm Gran Abs Auto 0.01 X10*3/uL (0.00-0.03); Imm Gran Pct Auto 0.1 % (0.0-0.4); Lymphocytes Absolute Auto 3.5 X10*3/uL (1.2-4.9); Lymphocytes Percent Auto 39.7 % (20-40); Mean Corpuscular HGB Conc 33.2 g/dl (31.0-35.0); Mean Corpuscular Hemoglobin 31.9 pg (27.0-33.0); Mean Corpuscular Volume 96.3 fL (80.0-98.0); Mean Platelet Volume 8.8 fL (9.4-12.3); Monocytes Absolute Auto 0.7 X10*3/uL (0.1-1.2); Monocytes Percent Auto 7.6 % (2-11); Neutrophils Absolute Auto 4.3 x10*3/uL (2.0-8.3); Neutrophils Percent Auto 50.1 % (45-73); Platelet Count 324 X10*3/uL (160-400); Red Blood Count 3.82 X10*6/uL (4.20-5.50); Red Cell Distribution Width 12.5 % (11.0-16.0); White Blood Count 8.7 X10*3/uL (4.8-10.8)
[2023-12-01 17:58] LABS: Alanine Aminotransferase 11 U/L (0-31); Alkaline Phosphatase 108 U/L (39-117); Aspartate Amino Transferase 15 U/L (5-31); Bilirubin Direct < 0.2 mg/dL (0.0-0.5); Bilirubin Total 0.2 mg/dL (0.0-1.0); Total Protein 7.9 g/dL (6.5-8.0)
[2023-12-01 18:15] LABS: Thyroid Stimulating Hormone 4.08 uIU/mL (0.32-4.0)
[2023-12-02 17:44] LABS: Triiodothyronine T3 Free 2.6 pg/mL (2.3-4.2)
== END 2023-12-01 14:23 | disposition home or self-care (01) ==
LOC: HO.WFDLDS 14:22
PROVIDERS: Visit Provider Internal Medicine Endocrinology, Diabetes & Metabolism
DX: E05.90 Thyrotoxicosis, unspecified without thyrotoxic crisis or storm (principal)
CPT/HCPCS: 36415; 80076; 84439; 84443; 84481; 85025

== ENCOUNTER 2023-12-23 10:27 | Outpatient (REF) | payer OTHER, SELFPAY ==
[2023-12-23 12:57] LABS: Free T4 (Free Thyroxine) 0.88 ng/dL (0.71-1.85); Thyroid Stimulating Hormone 0.63 uIU/mL (0.32-4.0)
[2023-12-24 07:43] LABS: Triiodothyronine T3 Free 3.3 pg/mL (2.3-4.2)
== END 2023-12-23 10:28 | disposition home or self-care (01) ==
LOC: HO.LAB 10:27
PROVIDERS: PCP Nurse Practitioner Family; Visit Provider Internal Medicine Endocrinology, Diabetes & Metabolism
DX: E05.90 Thyrotoxicosis, unspecified without thyrotoxic crisis or storm (principal)
CPT/HCPCS: 36415; 84439; 84443; 84481

== ENCOUNTER 2023-12-27 10:02 | Outpatient (AMB) | payer OTHER, SELFPAY ==
--- NOTE | 2023-12-27 10:10 | MHC.OFFVIS ---
Vital Signs 12/27/23 10:12 Height 5 ft 7 in Weight 192 lb 0.362 oz BMI 30.1 BP 104/62 Blood Pressure Location Rt brachial Position Sitting Pulse 74 Pulse Source Pulse Oximeter Intake Visit Reasons: Hyperthyroidism-confirmed Intake Note: Patient present today for Hyperthyroidism follow up visit. 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 She reports that a few months after the of her Son, in mid 2021 she began experiencing tremors, palpitations and rapid weight loss. She was evaluated by her Forest Scientist for a rash. He suspected hyperthyroidism and labs confirmed. She was subsequently referred to Endocrinology. After her initial visit with we checked a full antibody panel which revealed positive TSI, TRAB, TPO and TGAb. Labs confirmed hyperthyroidism. She was started on methimazole 30 mg PO QD and Propranolol IR 20 mg PO BID PRN HR >70. She did report symptoms improved on this, but she remained with anxiety and insomnia. She is scheduled for her thyroid uptake and scan later this week and is currently off the methimazole. She reports palpitations, tremors, anxiety. She was evaluated in the ED for chest pain after her last visit. Her troponins were elevated, but she was thought to not have ACS and was discharged home. She also reports transient blurred vision and chemosis. She reports hyperthyroidism in her maternal grandmother. Thyroid US: 02/19/2022 Right Thyroid Lobe: 5.8 x 2.5 x 2.4 cm, volume 18.1 mL. Parenchyma: The gland echotexture is heterogeneous. Thyroid vascularity is increased. Left Thyroid Lobe: 5.0 x 2.4 x 2.1 cm, volume 13.1 mL. Parenchyma: The gland echotexture is heterogeneous. Thyroid vascularity is increased. Isthmus: 0.9 cm in maximum AP dimension. No focal thyroid nodule is seen. NODES: No lymphadenopathy is seen in the tissue surrounding the thyroid gland. Labs: Laboratory Tests 01/29/22 01/29/22 02/19/22 12:40 12:40 11:36 TSH < 0.01 L Free T4 1.20 Total T3 Thyroid Stim Immunoglob Thyroglobulin Antibody Thyroid Peroxidase Ab >900 H TSH Receptor Ab 02/19/22 02/19/22 11:36 11:36 TSH Free T4 Total T3 263 H Thyroid Stim Immunoglob 648 H Thyroglobulin Antibody 269 H Thyroid Peroxidase Ab TSH Receptor Ab >40.00 H she is currently on methimazole 20 mg daily and propranolol 20 mg b.i.d. Not planning . Eyes bothering her but not any worse. No symptoms of hypothyroidism or hyperthyroidism. According to patient, Dr. Perry and Dr. 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 No periorbital edema. Thyroid is increase in size weighs about 60 g. There are no discrete nodules palpated Assessment & Plan Assessment & Plan (1) Hyperthyroidism: Code(s): E05.90 - Thyrotoxicosis, unspecified without thyrotoxic crisis or storm Category: Medical Plan: This is a 38-year-old female with a history of hyperthyroidism due to Graves disease currently being treated with methimazole 20 mg q.d.. She appears to be clinically euthyroid Plan is to check TRAB antibodies. We will also redirect referrals to Dr. Robb Reynoso at [facility] who can evaluate for thyroidectomy and also to Dr. Sethi for evaluation of ZHAO. She will follow-up after both appointments Orders: Orders Thyrotropin Receptor Antibody Today E05.90 - Thyrotoxicosis, unspecified without thyrotoxic crisis or storm Referrals Ear/Nose/Throat Referral E05.90 - Thyrotoxicosis, unspecified without thyrotoxic crisis or storm Medications: Refilled methimazole 20 mg (2 x 10 mg) PO DAILY 90 days 180 tabs 4RF E05.90 - Thyrotoxicosis, unspecified without thyrotoxic crisis or storm propranolol 20 mg PO BID 90 days 180 tabs 1RF Coding Level of Care Code Est Pt Level 3 (60902) Diagnoses Hyperthyroidism E05.90
[2023-12-27 10:12] VITALS: BP 104/62; PULSE 74; BMI 30.1
== END 2023-12-27 10:43 | disposition home or self-care (01) ==
PROVIDERS: PCP Nurse Practitioner Family; Visit Provider Internal Medicine Endocrinology, Diabetes & Metabolism
DX: E05.90 Thyrotoxicosis, unspecified without thyrotoxic crisis or storm (principal)
CPT/HCPCS: 99213

== ENCOUNTER → 2023-12-27 10:02 | Outpatient (BNVA) | payer OTHER, SELFPAY | PROVIDERS: PCP Nurse Practitioner Family; Visit Provider Internal Medicine Endocrinology, Diabetes & Metabolism | DX: E05.90 Thyrotoxicosis, unspecified without thyrotoxic crisis or storm (principal) | CPT/HCPCS: 99212 ==

== ENCOUNTER 2023-12-27 10:44 | Outpatient (REF) | payer OTHER, SELFPAY ==
[2023-12-30 21:18] LABS: Thyrotropin Receptor Antibody 6.48 IU/L (<=2.00)
== END 2023-12-27 10:45 | disposition home or self-care (01) ==
LOC: HO.10HDL 10:44
PROVIDERS: Visit Provider Internal Medicine Endocrinology, Diabetes & Metabolism
DX: E05.90 Thyrotoxicosis, unspecified without thyrotoxic crisis or storm (principal)
CPT/HCPCS: 36415; 83520

== ENCOUNTER 2024-03-24 08:35 | Emergency (ER) | payer OTHER, SELFPAY ==
[2024-03-24 08:39] VITALS: BP 128/78; PULSE 78; RESP 19; TEMP 36.6; O2SAT 98; BMI 29.4
[2024-03-24 09:06] LABS: MANUAL DIFF FLAG NO
[2024-03-24 09:10] LABS: Basophils Percent Auto 0.3 % (0-2); Eosinophils Absolute Auto 0.1 X10*3/uL (0.0-0.4); Eosinophils Percent Auto 0.8 % (0-4); Hemoglobin 12.7 g/dl (12.0-16.0); Imm Gran Abs Auto 0.01 X10*3/uL (0.00-0.03); Imm Gran Pct Auto 0.2 % (0.0-0.4); Lymphocytes Absolute Auto 2.4 X10*3/uL (1.2-4.9); Lymphocytes Percent Auto 38.9 % (20-40); Mean Corpuscular HGB Conc 34.3 g/dl (31.0-35.0); Mean Corpuscular Hemoglobin 32.3 pg (27.0-33.0); Mean Corpuscular Volume 94.1 fL (80.0-98.0); Mean Platelet Volume 8.6 fL (9.4-12.3); Monocytes Absolute Auto 0.5 X10*3/uL (0.1-1.2); Monocytes Percent Auto 7.8 % (2-11); Neutrophils Absolute Auto 3.2 x10*3/uL (2.0-8.3); Platelet Count 268 X10*3/uL (160-400); Red Blood Count 3.93 X10*6/uL (4.20-5.50); Red Cell Distribution Width 11.6 % (11.0-16.0); White Blood Count 6.1 X10*3/uL (4.8-10.8)
[2024-03-24 09:13] LABS: Prothrombin Time 11.6 SEC (10.9-12.4)
--- OUTSIDE RECORDS SUMMARY | 2024-03-24 09:33 | XMS_ITS | Clinical Summary ---
Author Organization [facility] it Address [address] [place] [address] Care Team Providers Care Kitchen Supervisor Name Role Phone Solitario John MD Primary Care Provider Surgical History Surgery Date Site/Laterality Comments APPENDECTOMY PROCEDURE: HISTORICAL APPENDECTOMY WISDOM TOOTH EXTRACTION PROCEDURE: HISTORICAL WISDOM TEETH EXTRACTION COLONOSCOPY 12/18/2019 PROCEDURE: HISTORICAL COLONOSCOPY; COMMENT: normal OTHER SURGICAL HISTORY 11/05/2017 PROCEDURE: NM DILATION & CURETTAGE DX&/THER NONOBSTETRIC; COMMENT: SAB SECTION 09/30/2020 PROCEDURE: HISTORICAL DELIVERY Medical History Medical History Date Comments Varicella without mention of complication DX:Varicella without mention of complication Allergic rhinitis 08/07/2015 DX:Allergic rh initis Mild cervical dysplasia, histologically confirmed 10/05/2006 DX:Mild cervical dysplasia, histologically confirmed; COMMENT: Colpo Bx SANTO 1. Pap ASCUS 04/22, then normal 10/23. Repeat q 6 month until 3 normal. History of gonorrhea 02/27/2013 DX:History of gonorrhea Covid-19 DX:COVID-19 Family History Medical History Relation Name Comments Breast cancer Aunt Thyroid disord er; great aunt Mom's aunt could be pt's grandmother No Known Problems Brother 1 No Known Problems Brother 2 Diabetes Father Type II No Known Problems Maternal Grandfather Diabetes Maternal Grandmother HTN, st roke Other: anuresym Mother eye aneurysm . coiled. tumor removed in navel cavity removed couple yrs ago Other: Arthritis HBP obesity , lupus Mother's side Ovarian cancer Other aunt paternal Other: result of a fall 5yrs ago Paternal Grandfather No Known Problems Paternal Grandmother Cervical cancer Neg Hx Colon cancer Neg Hx Colon polyps Neg Hx Crohn's disease Neg Hx Ulcerative colitis Neg Hx Uterine cancer Neg Hx Relation Name Status Comments Aunt Brother 1 Alive 12/1981 Brother 2 Alive 12/1980 Father Alive 09/1952 Phil, SHAJI Maternal Grandfather Maternal Grandmother Mother Alive 09/1951 Larissa, h istory of aneurysm Mother's side Other aunt Paternal Grandfather Paternal Grandmother Alive Social History Tobacco Use Types Packs/Day Years Used Date Smoking Tobacco: Never Smokeless Tobacco: Never Alcohol Use Standard Drinks/Week Comments Yes 0 (1 standard drink = 0.6 oz pur e alcohol) Sex and Gender Information Value Date Recorded Sex Assigned at Not on file Gender Identity Not on file Sexual Orientation Not on file Obstetrics History Last Filed Vital Signs Vital Sign Reading Time Taken Comments Blood Pressure 108/60 07/31/2021 10:53 AM EDT Pulse 84 07/31/2021 10:53 AM EDT Temperature - - Respiratory Rate - - Oxygen Saturation - - Inhaled Oxygen Concentration - - Weight 84.8 kg (187 lb) 07/31/2021 10:53 AM EDT Height 171.5 cm (5' 7.5 ) 07/31/2021 10:53 AM ED T Body Mass Index 28.86 07/31/2021 10:53 AM EDT Plan of Treatment Health Maintenance Due Date Last Done Comments Depression Screening 01/18/2022 HIV Screening 01/18/2022 Hepatitis C Screening 01/18/2022 Social Influencers of Health Screening 01/18/2022 Cervical Cancer Screening: Pap Smear 03/20/2022 03/20/2019 COVID-19 Vaccine ( season) 2023 Influenza Vaccine (#1) 2023 01/09/2003 DTaP,Tdap,and Td Vaccines (10 - Td or Tdap) 07/25/2030 07/25/2020, 03/01/2019, 12/10/2005, Additional history exists HIB Vaccines Completed 11/29/1988 IPV Vaccines Completed 04/30/1992, 11/15, 11/29/1988, Additional history exists MMR Vaccines Completed 05/01/1997, 07/08/1988 Hepatitis B Vaccines Completed 03/28/1998, 06/11/1997, 05/01/1997 Meningococcal ACWY Vaccine Completed 09/22/2005 HPV Vaccines Completed 11/14/2007, 06/16, 05/05/2007 Hepatitis A Vaccines Aged Out No long er eligible based on patient's age to complete this topic Pneumococcal Vaccine: Pediatrics (0 to 5 Years) and At-Risk Patients (6 to 64 Years) Aged Out No longer eligible based on patient's age to complete this topic RSV Immunization Patients Under 20 months Aged Out No longer eligible based on patient's age to complete this topic Varicella Vaccines Aged Out No longer eligible based on patient's age to complete this topic Procedures Procedure Name Priority Date/Time Associated Diagnosis Comments PAP SMEAR Routine 03/20/2019 from Last 3 Months or Most Recently Relevant to Health Maintenance Results * Pap smear (03/20/2019) 03/20/2019 Narrative HISTORICAL TESTING LAB RESULTING AGENCY - 03/22/2019 2:21 PM EST [id number] THINPREP PAP, IMAGED: NEGATIVE FOR SQUAMOUS INTRAEPITHELIAL LESION AND MALIGNANCY . CLUE CELLS ARE PRESENT. ELIJAH AMATO(ASCP) (CASE ELECTRONICALLY SIGNED 03 22 2019) RESULT OF APTIMA HIGH RISK HPV ASSAY: HIGH RISK HPV: ??NEGATIVE (SEROTYPES 16,18,31,33,35,39,45,51,52,56,58,59,66,68) COMPLETED ON 2019-03-22 ADEQUACY: SATISFACTORY ENDOCERVICAL/TRANSFORMATION ZONE COMPONENT PRESENT. SOURCE: THINPREP PAP HPV ANY DX: ??REFLEX 16 AND 18, CERVICAL, IMAGED CLINICAL INFORMATION: HPV ANY DIAGNOSIS. PAP HX NEG, Z12.4 Evelin Presley [facility] ORDERA BLES HISTORICAL TESTING LAB RESULTING AGENCY from Last 3 Months or Most Recently Relevant to Health Maintenance Care Teams Kitchen Supervisor Relationship Specialty Start Date End Date Solitario John MD [address] [place] [address] PCP - General Internal Medicine 09/15/20
--- NOTE | 2024-03-24 09:44 | ED.GENADULT ---
HPI - General Adult General Chief complaint: General Medical Stated complaint: Continuous Nosebleeds Time Seen by Provider: 03/24/24 09:44 Source: patient, RN notes reviewed and old records reviewed Mode of arrival: ambulatory Limitations: no limitations History of Present Illness ED Provider: Kylah YUSUF narrative: Patient is a 39-year-old female presenting to the emergency department with complaint of frequent nosebleeds since early January. At that time they were occurring 1-2 times per week. Since early February they have become more frequent. Called PCP, has an appointment there on Wednesday, but had a nosebleed this morning lasting around 30 minutes. No active bleeding now. Denies any trauma or other injury. Denies difficulty breathing. Has been using A&D ointment to nares at night. MD complaint: epistaxis Onset (ago): month(s) Location: face Related Data Previous Rx's ?Medication ?Instructions ?Recorded azithromycin 500 mg tablet 500 mg PO DAILY 6 days #6 tabs 12/01/23 (Zithromax TRI-[place]RI[place]) codeine 10 mg-guaifenesin 100 mg/5 5 ml PO Q6H PRN allergy symptoms 12/01/23 mL oral liquid #118 mL methimazole 10 mg tablet 20 mg (2 x 10 mg) PO DAILY 90 days 12/27/23 #180 tabs propranolol 20 mg tablet 20 mg PO BID 90 days #180 tabs 12/27/23 Allergies Allergy/AdvReac Type Severity Reaction Status Date / Time No Known Allergies Allergy Verified 03/24/24 08:43 Review of Systems Review of Systems: As per hPI. Yes all other systems are reviewed and are negative Constitutional: Constitutional: Reports as per HPI FOR[facility]LY [facility] Past Medical History Medical History Thyroid eye disease Surgical History History of appendectomy Hx of wisdom tooth extraction Hx of section Family History Family History Father HTN (hypertension) Diabetes mellitus Mother Aneurysm Tumor Nasal tumor Sarcoidosis Social History Social History Housing: Apartment Alcohol intake: current Alcohol intake frequency: holidays/special occasions only Alcohol type: wine Patient Tobacco Use Status: Never used Tobacco e-Cigarette/Vaping Use: Never Used Second Hand Smoke Exposure: No Advance Directives: Yes Advance Directives Information Provided: Yes Advance Directives on File: No Do you have a plan to hurt others: No Plan service: No Current occupational status: employed 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 Blood pressure normal. Heart rate normal. Respiratory rate normal. Temperature normal. Oxygen saturation normal. Const General: cooperative, healthy appearing and no acute distress Orientation/consciousness: oriented to person, oriented to place, oriented to time and patient oriented x3 Limitations: no limitations HENMT Head: Yes normocephalic and Yes atraumatic Ears: external ears normal General nose exam: Normal external nose present, Normal nares present, No nasal polyps present, Normal nasal mucous membranes and turbinates present, No nasal discharge present and Other nasal findings present (scant amount of dried blood on left nare) Face and sinus: Yes sinuses nontender and Yes face symmetric Mouth: Normal oral and palatal mucosa present, oropharynx normal and moist mucous membranes Throat: Yes posterior oropharynx normal and Yes uvula midline Eyes Pupils: Equal, round and reactive pupils present Neck Neck: Yes normal visual inspection and Yes supple Resp Effort & Inspection: normal respiratory effort and able to speak in complete sentences Auscultation: clear to auscultation bilaterally Cardio Rate: regular rate Rhythm: regular rhythm Heart sounds: S1 normal heart sound present and S2 normal heart sound present GI Palpation (GI): Soft to palpation and nontender Auscultation: normoactive bowel sounds General: Yes no CVA tenderness Back/Spine/Pelvis Back: no CVA tenderness Skin General skin exam: elasticity normal and turgor normal Neuro General: oriented to person, oriented to place, oriented to time, patient oriented x3, moves all extremities, no focal motor deficits and CN's II-XI intact bilaterally Cranial nerves: Yes Equal, round and reactive pupils present Cognition (Neuro): normal cognition Extrem General: Yes full ROM, Yes no pedal edema and Yes no calf tenderness Psych Mental Status: mental status grossly normal Affect: normal affect Thought process: Normal thought process present Medical Decision Making Medical Decision Making [facility] Narrative: Patient is a 39-year-old female presenting to the emergency department with complaint of frequent nosebleeds since early January. On exam patient is awake, A+Ox3, VS WNL, afebrile, normal neurological exam without focal deficits, physical exam findings as above. Given reported symptoms and physical exam findings, initial differential includes but is not limited to epistaxis. Labs notable for stable H&H compared to prior labs. She is not anticoagulated. No active bleeding at this time. Recommended that patient in using [id number] nasal saline spray several times daily as well as apply Vaseline to inside of nares several times daily until she is able to follow-up with her PCP/ENT. Discussed with patient length of time it takes for blood clot, that she should hold direct pressure to her nose for at least 10 minutes to ensure bleeding has stopped. Return precautions discussed. Patient verbalized understanding of and agreement with plan. Differential Diagnosis Differential Diagnoses: The differential diagnosis associated with the presentation includes As per [facility] Lab Data [facility] Lab Attestation statement: I reviewed the patient's lab results. As per [facility] 03/24/24 09:01 03/24/24 09:01 Labs: Lab Results 03/24/24 Range/Units 09:01 WBC 6.1 (4.8-10.8) X10*3/uL RBC 3.93 L (4.20-5.50) X10*6/uL Hgb 12.7 (12.0-16.0) g/dl Hct 37.0 (37.0-47.0) % MCV 94.1 (80.0-98.0) fL MCH 32.3 (27.0-33.0) pg MCHC 34.3 (31.0-35.0) g/dl RDW 11.6 (11.0-16.0) % Plt Count 268 (160-400) X10*3/uL MPV 8.6 L (9.4-12.3) fL Immature Gran % (Auto) 0.2 (0.0-0.4) % Neut % (Auto) 52.0 (45-73) % Lymph % (Auto) 38.9 (20-40) % Denali % (Auto) 7.8 (2-11) % Eos % (Auto) 0.8 (0-4) % Baso % (Auto) 0.3 (0-2) % Lymph # (Auto) 2.4 (1.2-4.9) X10*3/uL Denali # (Auto) 0.5 (0.1-1.2) X10*3/uL Eos # (Auto) 0.1 (0.0-0.4) X10*3/uL Baso # (Auto) 0.0 (0.0-0.2) X10*3/uL Abs Immat Gran (auto) 0.01 (0.00-0.03) X10*3/uL Absolute Neuts (auto) 3.2 (2.0-8.3) x10*3/uL Absolute Nucleated RBC 0.000 (0.0-0.012) X10*3/uL Nucleated RBC % (auto) 0.0 (0.0-0.2) /100WBC PT 11.6 (10.9-12.4) SEC INR 1.0 (0.9-1.1) Sodium 136 (135-145) mmol/L Potassium 4.1 (3.3-5.1) mmol/L Chloride 108 (96-108) mmol/L Carbon Dioxide 22 (22-29) mmol/L Anion Gap 10 L (12-20) BUN 9 (9-16) mg/dL Creatinine 0.75 (0.5-1.4) mg/dL Estim Creat Clear Calc 115.2 Estimated GFR > 60 Random Glucose 93 (60-115) mg/dL Calcium 9.4 (8.4-10.2) mg/dL Total Bilirubin 0.4 (0.0-1.0) mg/dL Direct Bilirubin 0.1 (0.0-0.5) mg/dL AST 20 (5-31) U/L ALT 18 (0-31) U/L Alkaline Phosphatase 96 (39-117) U/L Total Protein 8.4 H (6.5-8.0) g/dL Albumin 4.2 (3.5-5.0) g/dL External Record Review External record reviewed: Inpatient record, Office record and Outpatient record Discharge Plan Discharge Clinical Impression: Frequent epistaxis Patient Disposition: Home, Self-Care Instructions: Nosebleed (ED) Additional Instructions: You were evaluated in the emergency department today for frequent nosebleeds. Your labs were reassuring. We recommend that you apply a thick ointment such as vaseline inside your nostrils several times daily to prevent drying/cracking. We also recommend that you use over the counter nasal saline spray several times daily to keep your nasal passages moist. If the bleeding reoccurs, keep constant pressure for at least ten minutes, you can apply the clamp provided. We recommend follow up with the ear, nose and throat specialist. Keep your appointment with your PCP on Wednesday. Return to the ED if you have uncontrolled bleeding, difficulty breathing, or any other new or concerning symptoms. Prescriptions: No Action methimazole 10 mg tablet 20 mg PO DAILY 90 Days Qty: 180 4RF propranolol 20 mg tablet 20 mg PO BID 90 Days Qty: 180 1RF azithromycin [Zithromax TRI-[place]] 500 mg tablet 500 mg PO DAILY 6 Days Qty: 6 0RF codeine-guaifenesin 10-100 mg/5 mL liquid 5 ml PO Q6H PRN (Reason: allergy symptoms) Qty: 118 0RF Referrals: [facility] [Provider Group] Print Language: Bulgarian
[2024-03-24 10:12] LABS: Alanine Aminotransferase 18 U/L (0-31); Albumin Level 4.2 g/dL (3.5-5.0); Alkaline Phosphatase 96 U/L (39-117); Anion Gap 10 (12-20); Aspartate Amino Transferase 20 U/L (5-31); Bilirubin Direct 0.1 mg/dL (0.0-0.5); Bilirubin Total 0.4 mg/dL (0.0-1.0); Blood Urea Nitrogen 9 mg/dL (9-16); Calcium 9.4 mg/dL (8.4-10.2); Carbon Dioxide 22 mmol/L (22-29); Chloride 108 mmol/L (96-108); Creatinine Clr Calc Pharmacy 115.2; Estimated Glomerular Filt Rate > 60; Glucose Random 93 mg/dL (60-115); Potassium 4.1 mmol/L (3.3-5.1); Sodium 136 mmol/L (135-145); Total Protein 8.4 g/dL (6.5-8.0)
[2024-03-24 13:23] VITALS: BP 128/78; PULSE 78; RESP 19; TEMP 36.6; O2SAT 98
== END 2024-03-24 13:24 | disposition home or self-care (01) ==
PROVIDERS: Emergency Provider Emergency Medicine Emergency Medical Services; PCP Nurse Practitioner Family
DX: R04.0 Epistaxis (principal); Z79.899 Other long term (current) drug therapy
CPT/HCPCS: 36415; 80048; 80076; 85025; 85610; 99282; 99283

== ENCOUNTER 2024-04-05 08:58 | Outpatient (AMB) | payer OTHER, SELFPAY ==
--- NOTE | 2024-04-05 09:02 | MHC.PC.OV ---
Vital Signs 04/05/24 09:16 Height 5 ft 7 in Weight 191 lb 4 oz BMI 30.0 BP 116/61 Blood Pressure Location Rt brachial Position Sitting Respiration 16 Pulse 87 Pulse Source Pulse Oximeter Temp 98.3 F Temp Source Oral Pulse Oximetry (%) 100 Oxygen Delivery Method Room Air Intake Visit Reasons: CRONIC NOSE BLEEDS Intake Note: patient here c/o chronic nose bleeds since the week before [place]. 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: No Is last menstrual period known: Yes Last menstrual period: 03/04/24 Post menopausal: No Patient : No Allergies No Known Allergies Allergy (Verified 04/05/24 09:11) Tobacco use date assessed: 04/05/24 Dental Screening Dental Screen Date: 04/05/24 Did you have a dental visit in the last 12 months?: No Did you have a dental problem in the last 6 months where you did not have access to dental care?: No Was dental information given to patient?: Patient has dentist HPI HPI Comments History of Present Illness Details 39-year-old female presents with complaints of nosebleeds from the left nostril. The bleeding started in mid January 2024, 2-3 times weekly and have been occurring every other day since the middle of February. Last bleed was on 04/03/2024. Her nosebleeds usually last between 9-15 minutes. He notes that the bleeding is significant bright red blood with dark clots. She notes associated intermittent lightheadedness and blurry vision before the nosebleeds. No headache. She denies facial injury or trauma. She was evaluated at [facility] [place] [place] on 03/24/2024 for nosebleeds. CBC and CMP blood work done on 03/24/2024 which are unremarkable. She was instructed to apply a thick ointment such as vaseline inside her nostrils several times daily to prevent drying/cracking. She was also advised to use otc nasal saline spray several times daily to keep her nasal passages moist. If bleeding reoccurs, keep constant pressure for at least ten minutes or apply provided clamp to her nose. PCP and ENT follow up recommended. She notes that she has been applying vaseline to her nostrils and applying pressure during bleeding. She has not used nasal saline spray. She notes that her mother has history of lymphoma to her left nasal cavity and aneurism to a blood vessel of the left eye. 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 1. Little interest or pleasure in doing things: not at all 2. Feeling down, depressed, or hopeless: not at all 3. Trouble falling or staying asleep, or sleeping too much: nearly every day 4. Feeling tired or having little energy: more than half the days 5. Poor appetite or overeating: nearly every day 6. Feeling bad about yourself - or that you are a failure or have let yourself or your family down: not at all 7. Trouble concentrating on things, such as reading the newspaper or watching television: several days 8. Moving or speaking so slowly that other people could have noticed. Or the opposite - being so fidgety or restless that you have been moving around a lot more than usual: not at all 9. Thoughts that you would be better off or of hurting yourself in some way: not at all Total score: 9 Depression Screening Interpretation: Positive Depression Screening Done: Yes 36812 - PHQ-9 Billing: Yes Source: Developed by Drs. He Hernandez, Ileana Crabtree, Ion Zuniga and colleagues, with an educational steven from [employer]. Thrive Questionnaire Date Thrive assessed: 04/05/24 I am a: Patient What is your living situation today?: I have a steady place to live Within the past 12 months, did the food you bought not last and you didn't have the money to get more?: Often true Within the past 12 months, did you worry whether your food would run out before you got money to buy more?: Sometimes True Do you have trouble paying for medicines?: No Do you have trouble getting transportation to medical appointments?: No Do you have trouble paying your heating and electricity bill?: No Do you have trouble taking care of your child, family member or friend?: No Do you have trouble with day-to-day activities such as bathing, preparing meals, shopping, managing finances, etc.?: No Are you currently unemployed and looking for a job?: No Are you interested in more education?: I choose not to answer this question Currently or been in a relationship where the following occur: No concerns reported THRIVE Score: 2 AUDIT C Alcohol Use Questionnaire (AUDIT-C) 1. How often do you have a drink containing alcohol?: Monthly or less 2. How many drinks containing alcohol do you have on a typical day when you are drinking?: 1 or 2 3. How often do you have six or more drinks on one occasion?: Never Total Score: 1 Score Reviewed/Action Taken: Yes JAMES-7 AMB Questionnaire JAMES-7 Date JAMES - 7 assessed: 04/05/24 Feeling nervous, anxious, or on edge: 0 = Not at all Not being able to stop or control worryin = Not at all Worrying too much about different things: 0 = Not at all Trouble relaxin = Not at all Being so restless that it is hard to sit still: 0 = Not at all Becoming easily annoyed or irritable: 1 = Several days Feeling afraid as if something awful might happen: 0 = Not at all Total JAMES-7 score (0-4 normal; 5-9 mild; 10-14 moderate; 15-21 severe): 1 Source: Developed by Drs. He Hernandez, Ileana Crabtree, Ion Zuniga and colleagues, with an educational steven from [employer]. JAMES-7 Assessment Billing JAMES-7 Assessment Tool: JAMES-7 Assessment 24614 Review of Systems Const Details: Const Denies chills, Denies fatigue, Denies fever(s), Denies headache(s) and Denies weakness ENT Reports as per HPI Card Denies chest pain, Denies lightheadedness, Denies dyspnea and Denies other (Palpitations) Resp Denies cough, Denies dyspnea, Denies wheezing and Denies other ( shortness of breath) GI Denies abdominal pain, Denies melena, Denies hematochezia, Denies change in bowel habits, Denies dyspepsia and Denies nausea Denies hematuria and Denies dysuria Musc Denies abnormal gait, Denies myalgias, Denies arthralgias, Denies numbness and Denies tingling Skin/Breast Denies rash, Denies unusual bruising and Denies wounds Neuro Denies abnormal gait, Denies dizziness, Denies headache(s), Denies memory loss, Denies numbness, Denies Sensory deficit (Neuro), Denies tingling and Denies weakness Psych Denies anxiety, Denies depression, Denies memory loss Endo Denies cold intolerance, Denies fatigue, Denies heat intolerance, Denies polydipsia and Denies polyuria Aller/Immun Denies wheezing Physical exam (Primary Care) Tobacco/Smoking Status: Tobacco use Status Tobacco use date assessed 12/01/23 04/05/24 09:02 Patient Tobacco Use Status Never used Tobacco 04/05/24 09:02 e-Cigarette/Vaping Use Never Used 04/05/24 09:02 Depression Screening Interpretation: Positive Thrive Assessment: Date of Thrive Assessment Date Thrive assessed 03/24/24 04/05/24 09:02 Currently or been in a relationship where the following occur: No concerns reported Const Other: General: no acute distress and well developed Nutritional Appearance: well nourished Orientation/consciousness: patient oriented x3 HENMT Head is normocephalic Bilateral ear canal and TM are normal Nasal turbinates with erythema and dryness, no active bleeding, drainage or old blood, no edema Oropharynx are pink and moist Sinuses are nontender with palpation No auricular or cervical lymphadenopathy Eyes General: appearance normal, both eyes and all related structures Pupils: Equal, round and reactive pupils present EOM: EOMs intact bilaterally Resp Effort & Inspection: normal respiratory effort Auscultation: clear to auscultation bilaterally Cardio Rate: regular rate Rhythm: regular rhythm Heart sounds: S1 normal heart sound present, S2 normal heart sound present, no gallops, no murmurs and no rubs GI Palpation (GI): No Abdominal aortic bruit present, Soft to palpation, nontender, No hepatosplenomegaly present and No Rebound tenderness present Auscultation: normal bowel sounds General: Yes no CVA tenderness Back/Spine/Pelvis Back: no CVA tenderness Cervical Spine: cervical ROM normal and No Cervical spine tenderness Thoracic/Lumbar Spine: thoraco-lumbar ROM normal, No pain with thoraco-lumbar ROM, No thoracic spinal tenderness and No lumbar spinal tenderness Extrem General: Yes normal to inspection, No edema and No calf tenderness Skin General: warm and dry. Normal skin color. Normal skin turgor Neuro General: patient oriented x3, gait normal and no focal neuro deficit Cranial nerves: Yes Equal, round and reactive pupils present Cognition (Neuro): normal cognition Gait exam (Neuro): Normal gait present Sensory Exam: No Sensory deficit (Neuro) Psych Appearance: grossly normal Affect: normal affect Attitude: cooperative Thought process: Normal thought process present Coding Level of Care Code Est Pt Level 4 (08646) Diagnoses Left-sided epistaxis R04.0 Additional Codes JAMES-7 Assessment Billing - JAMES-7 Assessment Tool: JAMES-7 Assessment 86679 ([id number]) PHQ-9 - 35806 - PHQ-9 Billing: Yes ([id number]) Assessment & Plan Assessment & Plan (1) Left-sided epistaxis: Code(s): R04.0 - Epistaxis Category: Medical Plan: Left-sided epistaxis x2 months. Progressively worsened from 2-3 times weekly to every other day. Associated lightheadedness before nosebleeds. Was evaluated in the ED on 03/24/2024; lab results were unremarkable. Nasal turbinates with erythema and dryness, no active bleeding, drainage or old blood, no edema. Continue use Vaseline as needed and encouraged to start using nasal saline spray as needed to prevent dryness in her nostrils. Her blood pressure if bleeding reoccurs. Go to the ED with uncontrolled bleeding. Urgent referral made to ENT. Follow-up for an extended physical exam in 2 months or sooner with symptoms or concerns. Verbalized understanding and agreed with the treatment plan. Orders: Referrals Ear/Nose/Throat Referral R04.0 - Epistaxis
--- OUTSIDE RECORDS SUMMARY | 2024-04-05 09:08 | XMS_ITS | Clinical Summary ---
Author Organization [facility] it Address [address] [place] [address] Care Team Providers Care Soda Column Operator Name Role Phone Solitario John MD Primary Care Provider [phone] Surgical History Surgery Date Site/Laterality Comments APPENDECTOMY PROCEDURE: HISTORICAL APPENDECTOMY WISDOM TOOTH EXTRACTION PROCEDURE: HISTORICAL WISDOM TEETH EXTRACTION COLONOSCOPY 12/18/2019 PROCEDURE: HISTORICAL COLONOSCOPY; COMMENT: normal OTHER SURGICAL HISTORY 11/05/2017 PROCEDURE: CT DILATION & CURETTAGE DX&/THER NONOBSTETRIC; COMMENT: SAB [...] Brother 2 Alive 12/1980 Father Alive 09/1952 SHAJI Villarreal Maternal Grandfather Maternal Grandmother Mother Alive 09/1951 Larissa, h istory of aneurysm Mother's side Other aunt Paternal Grandfather Paternal Grandmother Alive Social History Tobacco Use Types Packs/Day Years Used Date Smoking Tobacco: Never Smokeless Tobacco: Never Alcohol Use Standard Drinks/Week Comments Yes 0 (1 standard drink = 0.6 oz pur e alcohol) Comments Unknown Sex and Gender Information Value Date Recorded Sex Assigned at Not on file Legal Sex Female 5:47 AM EST Gender Identity Not on file Sexual Orientation [...] on patient's age to complete this topic Meningococcal B Vacine Aged Out No lo nger eligible based on patient's age to complete [...] RESULTING AGENCY - 03/22/2019 2:21 PM EST [id number] THINPREP PAP, IMAGED: NEGATIVE FOR SQUAMOUS INTRAEPITHELIAL [...] HPV ANY DIAGNOSIS. PAP HX NEG, Z12.4 us Evelin [facility] CYTOLOGY ORDERABLES Fin al Result HISTORICAL TESTING LAB RESULTING AGENCY from Last 3 Months or Most Recently Relevant to Health Maintenance Care Teams Soda Column Operator Relationship Specialty Start Date End Date Solitario John MD [address] [place] [address] PCP - General Internal Medicine 09/15/20
[2024-04-05 09:16] VITALS: BP 116/61; PULSE 87; RESP 16; TEMP 36.8; O2SAT 100
== END 2024-04-05 09:47 | disposition home or self-care (01) ==
PROVIDERS: PCP Nurse Practitioner Family; Visit Provider Nurse Practitioner Family
DX: R04.0 Epistaxis (principal)

== ENCOUNTER → 2024-04-05 08:58 | Outpatient (BNVA) | payer OTHER, SELFPAY | PROVIDERS: PCP Nurse Practitioner Family; Visit Provider Nurse Practitioner Family | DX: R04.0 Epistaxis (principal) | CPT/HCPCS: 96127 ==

== ENCOUNTER 2024-06-12 09:58 | Outpatient (AMB) | payer OTHER, SELFPAY ==
--- NOTE | 2024-06-12 10:01 | A.OFFPC_ITS ---
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: No Is last menstrual period known: Yes Last menstrual period: 06/12/24 Post menopausal: No Patient : No Allergies No Known Allergies Allergy (Verified 06/12/24 10:27) Medication List - Last Reconciled 06/12/24 by Prabha Kenyon CNP methimazole 20 mg (2 x 10 mg) PO DAILY 90 days propranolol 20 mg PO BID 90 days Tobacco use date assessed: 06/12/24 Dental Screening Dental Screen Date: 06/12/24 Did you have a dental visit in the last 12 months?: Yes Did you have a dental problem in the last 6 months where you did not have access to dental care?: No Was dental information given to patient?: Patient has dentist HPI HPI Comments History of Present Illness Details 39-year-old female presents for an exten ded physical exam. She takes her methimazole and propranolol 3 times a week instead as prescribed due to forgetfulness and not experiencing hypothyroidism symptoms. Acute issue(s) - None Past Medical History - Hyperthyroidism, palpitations, arrhyth pranay, nomocystic anemia, myopia, hyperopia Social History - Nonsmoker. Does not vape. Drinks 1-2 g asses of wine/martini 2-3 times monthly. Denies recreational drug use - Has been making healthy dietary choice s. Recently started routine exercise. Reports difficulty falling asleep but maintains sleep Health maintenance - Last eye exam was a year and half ago with Sandi Cruz. She was signed a release for her PCP to obtain her ophthalmology record - Last dental visit was about 3 months a go - Last Tdap was in 07/25/2020 - Has not been vaccinated for the flu ; declines vaccination - Last pap smear test was almost 4 years ago. She is waiting for her old emt driver record to be sent to [facility] emt driver to establish care with them Specialists [facility] Endocrinology [facility] Medical History Thyroid eye disease Surgical History History of appendectomy Hx of wisdom tooth extraction Hx of section Family History Father HTN (hypertension) Diabetes mellitus Mother Aneurysm Tumor Nasal tumor Sarcoidosis Social History Housing: Apartment Alcohol intake: current Alcohol intake frequency: holidays/special occasions only Alcohol type: wine Patient Tobacco Use Status: Never used Tobacco e-Cigarette/Vaping Use: Never Used Second Hand Smoke Exposure: No Patient : No service: No Current occupational status: employed 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 1. Little interest or pleasure in doing things: not at all 2. Feeling down, depressed, or hopeless: not at all 3. Trouble falling or staying asleep, or sleeping too much: more than half the days 4. Feeling tired or having little energy: not at all 5. Poor appetite or overeating: not at all 6. Feeling bad about yourself - or that you are a failure or have let yourself or your family down: not at all 7. Trouble concentrating on things, such as reading the newspaper or watching television: not at all 8. Moving or speaking so slowly that other people could have noticed. Or the opposite - being so fidgety or restless that you have been moving around a lot more than usual: not at all 9. Thoughts that you would be better off or of hurting yourself in some way: not at all Total score: 2 Depression Screening Interpretation: Negative Depression Screening Done: Yes 27561 - PHQ-9 Billing: Yes Source: Developed by Drs. He Hernandez, Ileana Crabtree, Ion Zuniga and colleagues, with an educational steven from [employer]. Thrive Questionnaire Date Thrive assessed: 06/12/24 I am a: Patient What is your living situation today?: I have a steady place to live Within the past 12 months, did the food you bought not last and you didn't have the money to get more?: Often true Within the past 12 months, did you worry whether your food would run out before you got money to buy more?: Sometimes True Do you have trouble paying for medicines?: No Do you have trouble getting transportation to medical appointments?: No Do you have trouble paying your heating and electricity bill?: No Do you have trouble taking care of your child, family member or friend?: No Do you have trouble with day-to-day activities such as bathing, preparing meals, shopping, managing finances, etc.?: No Are you currently unemployed and looking for a job?: No Are you interested in more education?: I choose not to answer this question Currently or been in a relationship where the following occur: No concerns reported THRIVE Score: 2 AUDIT C Alcohol Use Questionnaire (AUDIT-C) 1. How often do you have a drink containing alcohol?: 2-4 times a month 2. How many drinks containing alcohol do you have on a typical day when you are drinking?: 1 or 2 3. How often do you have six or more drinks on one occasion?: Never Total Score: 2 Score Reviewed/Action Taken: Yes JAMES-7 AMB Questionnaire JAMES-7 Date JAMES - 7 assessed: 06/12/24 Feeling nervous, anxious, or on edge: 0 = Not at all Not being able to stop or control worryin = Not at all Worrying too much about different things: 0 = Not at all Trouble relaxin = Not at all Being so restless that it is hard to sit still: 0 = Not at all Becoming easily annoyed or irritable: 1 = Several days Feeling afraid as if something awful might happen: 0 = Not at all Total JAMES-7 score (0-4 normal; 5-9 mild; 10-14 moderate; 15-21 severe): 1 Source: Developed by Drs. He Hernandez, Ileana Crabtree, Ion Zuniga and colleagues, with an educational steven from [employer]. JAMES-7 Assessment Billing JAMES-7 Assessment Tool: JAMES-7 Assessment 81701 Review of Systems Const Details: Denies chills, Denies fatigue, Denies fever(s), Denies headache(s) and Denies weakness HEENT Denies change in vision, Denies dizziness, Denies headache(s), Denies hearing loss, Denies nasal congestion, Denies sinus pain, Denies sinus pressure and Denies sore throat Card Denies chest pain, Denies lightheadedness, Denies dyspnea and Denies other (palpitations) Resp Denies cough, Denies dyspnea and Denies wheezing GI Denies abdominal pain, Denies melena, Denies hematochezia, Denies change in bowel habits, Denies dyspepsia and Denies nausea Denies hematuria and Denies dysuria Musc Denies abnormal gait, Denies myalgias, Denies arthralgias, Denies numbness and Denies tingling Skin/Breast Denies rash, Denies unusual bruising and Denies wounds Neuro Denies abnormal gait, Denies dizziness, Denies headache(s), Denies memory loss, Denies numbness, Denies Sensory deficit (Neuro), Denies tingling and Denies weakness Psych Denies anxiety, Denies depression and Denies memory loss Endo Denies cold intolerance, Denies fatigue, Denies heat intolerance, Denies polydipsia and Denies polyuria Krzysztof/Lymph Denies easy bleeding and Denies easy bruising Aller/Immun Denies wheezing Physical exam (Primary Care) Vital Signs: Last Vital Signs Temp 98.3 F 06/12/24 10:05 Pulse 89 06/12/24 10:05 Resp 16 06/12/24 10:05 BP 128/58 L 06/12/24 10:05 Pulse Ox 99 06/12/24 10:05 Oxygen Delivery Method Room Air 06/12/24 10:05 BMI result Body Mass Index 29.3 Tobacco/Smoking Status: Tobacco use Status Tobacco use date assessed 06/12/24 06/12/24 10:07 Patient Tobacco Use Status Never used Tobacco 06/12/24 10:03 e-Cigarette/Vaping Use Never Used 06/12/24 10:03 PHQ-9: PHQ-9 Score PHQ-9: Total score 2 06/12/24 10:07 Depression Screening Interpretation: Negative Thrive Assessment: Date of Thrive Assessment Date Thrive assessed 06/12/24 06/12/24 10:03 Currently or been in a relationship where the following occur: No concerns reported Const Other: General: no acute distress, well developed, alert and awake Nutritional Appearance: well nourished Orientation/consciousness: patient oriented x3 [facility] Head: Yes normocephalic and Yes atraumatic Ears: hearing grossly normal bilaterally and TM's normal bilaterally General nose exam: Normal external nose present and Normal nares present Mouth: Normal oral and palatal mucosa present and moist mucous membranes Teeth and gingiva: dentition normal Throat: Yes oropharynx normal Eyes Pupils: Equal, round and reactive pupils present and Pupil accommodation reflex normal EOM: EOMs intact bilaterally Neck Neck: Yes normal visual inspection, Yes no lymphadenopathy and Yes trachea midline Thyroid: Thyroid normal Carotids: no bruits Lymphatic: no lymphadenopathy noted Chest Chest palpation & inspection: normal inspection of the chest Resp Effort & Inspection: normal respiratory effort Auscultation: clear to auscultation bilaterally Cardio Rate: regular rate Rhythm: regular rhythm Heart sounds: S1 normal heart sound present, S2 normal heart sound present, no gallops, no murmurs and no rubs Bruits: no abdominal aortic bruits and no carotid bruits GI Palpation (GI): No Abdominal aortic bruit present, Soft to palpation, nontender, No hepatosplenomegaly present and No Rebound tenderness present Auscultation: normal bowel sounds General: Yes no CVA tenderness Back/Spine/Pelvis Back: no CVA tenderness Cervical Spine: cervical ROM normal and No Cervical spine tenderness Thoracic/Lumbar Spine: thoraco-lumbar ROM normal, No pain with thoraco-lumbar ROM, No thoracic spinal tenderness and No lumbar spinal tenderness Skin General: warm and dry. Normal skin color. Normal skin turgor Lesions: no lesions Rashes: no rashes Trauma: no lacerations or abrasions Wounds: no wounds Nails: normal Neuro General: patient oriented x3, gait normal and CN's II-XI intact bilaterally Cranial nerves: Yes Equal, round and reactive pupils present Cognition (Neuro): normal cognition Gait exam (Neuro): Normal gait present Motor exam (neuro): 5/5 motor strength present throughout Sensory Exam: No Sensory deficit (Neuro) Deep tendon reflexes (DTR's): Right patellar reflex intensity grade: 2+ and Left patellar reflex intensity grade: 2+ Extrem General: Yes normal to inspection, No edema and No calf tenderness Psych Appearance: grossly normal Affect: normal affect Attitude: cooperative Thought process: Normal thought process present Coding Level of Care Code Est Pt Level 3 (50044) Est Pt Prev Care 18-39y(85694) Diagnoses Normal physical examination, routine Z00.00 Hyperthyroidism E05.90 Sleep disturbance G47.9 Additional Codes JAMES-7 Assessment Billing - JAMES-7 Assessment Tool: JAMES-7 Assessment 09911 ([id number]) PHQ-9 - 58413 - PHQ-9 Billing: Yes ([id number]) Assessment & Plan Assessment & Plan (1) Normal physical examination, routine: Code(s): Z00.00 - Encounter for general adult medical examination without abnormal findings Category: Medical Plan: No significant functional limitation noted. Continue current treatment regimen. Healthy diet and routine exercise encouraged. Follow-up with endocrinology as planned. Schedule next physical exam for on/or after 06/12/2025. Return sooner with symptoms or concerns. Verbalized understanding and agreed with the plan. (2) Hyperthyroidism: Code(s): E05.90 - Thyrotoxicosis, unspecified without thyrotoxic crisis or storm Category: Medical Plan: Encouraged to take methimazole and propranolol as prescribed. Follow-up with endocrinology as planned. Verbalized understanding and agreed with the treatment plan. (3) Sleep disturbance: Code(s): G47.9 - Sleep disorder, unspecified Category: Medical Plan: She reports difficulty falling asleep blood maintain sleep. Instructed on sleep hygiene. Routine exercise encouraged. Follow-up as needed. Verbalized understanding and agreed with the plan.
[2024-06-12 10:05] VITALS: BP 128/58; PULSE 89; RESP 16; TEMP 36.8; O2SAT 99; BMI 29.3
--- OUTSIDE RECORDS SUMMARY | 2024-06-12 11:29 | XMS_ITS | Clinical Summary ---
Author Organization [facility] it Address [address] [place] [address] Care Team Providers Care Career Guidance Technician Name Role Phone Solitario John MD Primary Care Provider [phone] Surgical History Surgery Date Site/Laterality Comments APPENDECTOMY PROCEDURE: HISTORICAL APPENDECTOMY WISDOM TOOTH EXTRACTION PROCEDURE: HISTORICAL WISDOM TEETH EXTRACTION COLONOSCOPY 12/18/2019 PROCEDURE: HISTORICAL COLONOSCOPY; COMMENT: normal OTHER SURGICAL HISTORY 11/05/2017 PROCEDURE: IA DILATION & CURETTAGE DX&/THER NONOBSTETRIC; COMMENT: SAB [...] COVID-19 Vaccine ( season) 2023 Influenza Vaccine (Season Ended) 2024 01/09/2003 DTaP,Tdap,and Td Vaccines (10 - Td [...] age to complete this topic Meningococcal B Vaccine Aged Out No l onger eligible based on patient's age to complete [...] RESULTING AGENCY - 03/22/2019 2:21 PM EST [id number] THINPREP PAP, IMAGED: NEGATIVE FOR SQUAMOUS INTRAEPITHELIAL [...] Recently Relevant to Health Maintenance Care Teams Career Guidance Technician Relationship Specialty Start Date End Date Solitario John MD [address] [place] [address] PCP - General Internal Medicine 09/15/20
== END 2024-06-12 10:46 | disposition home or self-care (01) ==
LOC: HO.HMCFM 09:59
PROVIDERS: PCP Nurse Practitioner Family; Visit Provider Nurse Practitioner Family
DX: Z00.00 Encounter for general adult medical examination without abnormal findings (principal); E05.90 Thyrotoxicosis, unspecified without thyrotoxic crisis or storm; G47.9 Sleep disorder, unspecified

== ENCOUNTER → 2024-06-12 09:58 | Outpatient (BNVA) | payer OTHER, SELFPAY | PROVIDERS: PCP Nurse Practitioner Family; Visit Provider Nurse Practitioner Family | DX: Z00.00 Encounter for general adult medical examination without abnormal findings (principal); E05.90 Thyrotoxicosis, unspecified without thyrotoxic crisis or storm; G47.9 Sleep disorder, unspecified | CPT/HCPCS: 96127 ==

== ENCOUNTER 2024-08-21 08:48 | Outpatient (AMB) | payer OTHER, SELFPAY ==
--- NOTE | 2024-08-21 08:56 | MHC.OFFVIS ---
Vital Signs 08/21/24 09:00 Height 5 ft 7 in Weight 189 lb 13.088 oz BMI 29.7 BP 104/68 Blood Pressure Location Rt brachial Position Sitting Pulse 103 H Pulse Source Pulse Oximeter Pulse Oximetry (%) 97 Oxygen Delivery Method Room Air Intake Visit Reasons: Hyperthyroidism Intake Note: Patient present today for Hyperthyroidism follow up visit. 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 She reports that a few months after the of her Son, in mid 2021 she began experiencing tremors, palpitations and rapid weight loss. She was evaluated by her Human Capital Analyst for a rash. He suspected hyperthyroidism and labs confirmed. She was subsequently referred to Endocrinology. After her initial visit with we checked a full antibody panel which revealed positive TSI, TRAB, TPO and TGAb. Labs confirmed hyperthyroidism. She was started on methimazole 30 mg PO QD and Propranolol IR 20 mg PO BID PRN HR >70. She did report symptoms improved on this, but she remained with anxiety and insomnia. She is scheduled for her thyroid uptake and scan later this week and is currently off the methimazole. She reports palpitations, tremors, anxiety. She was evaluated in the ED for chest pain after her last visit. Her troponins were elevated, but she was thought to not have ACS and was discharged home. She also reports transient blurred vision and chemosis. She reports hyperthyroidism in her maternal grandmother. Thyroid US: 02/19/2022 Right Thyroid Lobe: 5.8 x 2.5 x 2.4 cm, volume 18.1 mL. Parenchyma: The gland echotexture is heterogeneous. Thyroid vascularity is increased. Left Thyroid Lobe: 5.0 x 2.4 x 2.1 cm, volume 13.1 mL. Parenchyma: The gland echotexture is heterogeneous. Thyroid vascularity is increased. Isthmus: 0.9 cm in maximum AP dimension. No focal thyroid nodule is seen. NODES: No lymphadenopathy is seen in the tissue surrounding the thyroid gland. Labs: Laboratory Tests 01/29/22 01/29/22 02/19/22 12:40 12:40 11:36 TSH < 0.01 L Free T4 1.20 Total T3 Thyroid Stim Immunoglob Thyroglobulin Antibody Thyroid Peroxidase Ab >900 H TSH Receptor Ab 02/19/22 02/19/22 11:36 11:36 TSH Free T4 Total T3 263 H Thyroid Stim Immunoglob 648 H Thyroglobulin Antibody 269 H Thyroid Peroxidase Ab TSH Receptor Ab >40.00 H she is currently on methimazole 20 mg daily and propranolol 20 mg b.i.d. Not planning . Eyes bothering her but not any worse. No symptoms of hypothyroidism or hyperthyroidism. According to patient, Dr. Perry and Dr. Hernández did not take her insurance . She was referred last visit to Dr. Robb Castro at [facility] and Dr. Merry Toscano at [facility] . However, she recently change her insurance is hoping to go locally The patient is a 39-year-old female presenting with hyperthyroidism. She has been experiencing symptoms consistent with Graves' disease, including thyroid eye disease and a large goiter. The patient reports difficulty swallowing due to the size of the goiter and has been managing her condition with methimazole and propranolol. The patient has a history of elevated pulse rates, with a recent reading of 103 bpm, which is higher than her previous reading of 89 bpm in May. She has been experiencing fatigue and fluctuating energy levels, which may be related to her thyroid condition. The patient has not been consistent with her propranolol intake, missing doses occasionally due to time constraints. The patient has been exploring surgical options for her thyroid condition, including consultations with various specialists. She has encountered issues with insurance coverage, which has complicated her ability to receive care from preferred providers. The patient is considering surgery to address her thyroid issues and has been advised to stay overnight post-surgery due to potential complications. [facility] Medical History Thyroid eye disease Surgical History History of appendectomy Hx of wisdom tooth extraction Hx of section Family History Father HTN (hypertension) Diabetes mellitus Mother Aneurysm Tumor Nasal tumor Sarcoidosis Social History (Reviewed 08/21/24 @ 09:04 by STEPHANIE Hernández Housing: Apartment Alcohol intake: current Alcohol intake frequency: holidays/special occasions only Alcohol type: wine Patient Tobacco Use Status: Never used Tobacco e-Cigarette/Vaping Use: Never Used Second Hand Smoke Exposure: No service: No Current occupational status: employed 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 No periorbital edema. Thyroid is increase in size weighs about 60 g. There are no discrete nodules palpated Assessment & Plan Assessment & Plan (1) Hyperthyroidism: Code(s): E05.90 - Thyrotoxicosis, unspecified without thyrotoxic crisis or storm Category: Medical Plan: This is a 39-year-old female with a history of hyperthyroidism due to Graves disease currently being treated with methimazole 20 mg q.d. and propranolol. She appears to be clinically euthyroid Plan is to check thyroid function studies as well as TSI . We will adjust methimazole accordingly . We will remake appointments with Dr. Perry and Dr. Hernández locally 1. Hyperthyroidism The patient is experiencing symptoms consistent with Graves' disease, including thyroid eye disease and a large goiter. Management includes methimazole and propranolol, with consideration for surgical intervention. The patient has been advised to stay overnight post-surgery due to potential complications. Insurance issues have complicated access to preferred providers. During the visit, we discussed the management of hyperthyroidism and the associated symptoms of Graves' disease, including thyroid eye disease and goiter. We reviewed the potential benefits and risks of surgical intervention, emphasizing the importance of staying overnight post-surgery to monitor for complications. We also addressed the challenges posed by insurance coverage in accessing preferred providers. The patient was informed about the need for consistent medication adherence and the potential for future treatment options, including new drug trials involving FcRN inhibitors at [facility] . - Continue taking methimazole and propranolol as prescribed. - Follow up with referrals for surgical consultation and ophthalmology evaluation. - Monitor symptoms and report any significant changes, especially related to heart rate and vision. - Discuss insurance coverage options with the acquisition marketing coordinator to ensure access to preferred providers. with the above treatment plan. Patient was informed and verbally consented to the use of an ambient scribe for clinic note documentation during this visit. Orders: Orders Free T4 (Free Thyroxine) Today E0. - Thyrotoxicosis, unspecified without thyrotoxic crisis or storm Triiodothyronine T3 Free Today E0. - Thyrotoxicosis, unspecified without thyrotoxic crisis or storm Thyroid Stimulating Hormone Today E0. - Thyrotoxicosis, unspecified without thyrotoxic crisis or storm Thyroid Stimulating Immunoglob Today E05. - Thyrotoxicosis, unspecified without thyrotoxic crisis or storm Referrals Ophthalmology Referral E05. - Thyrotoxicosis, unspecified without thyrotoxic crisis or storm General Surgery Referral E0. - Thyrotoxicosis, unspecified without thyrotoxic crisis or storm Medications: Refilled methimazole 20 mg (2 x 10 mg) PO DAILY 180 tabs 4RF 90 days E0 - Thyrotoxicosis, unspecified without thyrotoxic crisis or storm propranolol 20 mg PO BID 180 tabs 1RF 90 days Coding Level of Care Code Est Pt Level 3 (86525) Diagnoses Hyperthyroidism E0
[2024-08-21 09:00] VITALS: BP 104/68; PULSE 103; O2SAT 97; BMI 29.7
--- OUTSIDE RECORDS SUMMARY | 2024-08-21 09:01 | XMS_ITS | Encounter Summary ---
[facility] Organization [facility] Address [address] [place] [address] Care Team Providers Care Reconcilement Clerk Name Role Phone Name, Sg HAINES [facility] Primary Care Provider UnavailKristi Mckeon MD Primary Care Provider Un available Leonid Murrayabela DO Primary Care Pro vider Unavailable Solitario John MD Primary Care Provider Yamila weaver Encounter Details Date Type Department Care Team Description 12/17/2011 Night Triage Doc Medical Records [address] [place] [id number] Abstract, Provider Social History Tobacco Use Types Packs/Day Years Used Date Smoking Tobacco: Never Smokeless Tobacco: Never Alcohol Use Standard Drinks/Week Comments Yes 0 (1 standard drink = 0.6 oz pur e alcohol) occassionally Alcohol Habits Answer Date Recorded How often do you have a drink containing alcohol ? Never 03/14/2020 How many drinks containing a lcohol do you have on a typical day when you are drinking? Not asked How often do you have six or more drinks on one occasion? Not asked Sex Assigned at Date Recorded Not on file Job Start Date Occupation Industry Not on file Not on file Not on file documented as of this encounter Plan of Treatment Not on file documented as of this encounter Visit Diagnoses Not on filedocumented in this encounter Care Teams Reconcilement Clerk Relationship Specialty Start Date End Date Name, MD Sg PCP - General 11/03/10 11/18/14 [facility], Pcp PCP - General Internal Medicine 11/19/14 08/06/15 Kristi Burton MD PCP - General Internal Medicine 08/07/1511/30 Karina Murray DO PCP - General Internal Medicine 12/01/18 09/14/20 Solitario John MD PCP - General Internal Medicine 09/15/20 documented as of this encounter
--- OUTSIDE RECORDS SUMMARY | 2024-08-21 09:01 | XMS_ITS | Clinical Summary ---
Author Organization [employer] [facility] it Address [address] [place] [address] Care Team Providers Care Doctor Osteopathic Name Role Phone Solitario John MD Primary Care Provider Surgical History Surgery Date Site/Laterality Comments APPENDECTOMY PROCEDURE: HISTORICAL APPENDECTOMY WISDOM TOOTH EXTRACTION PROCEDURE: HISTORICAL WISDOM TEETH EXTRACTION COLONOSCOPY 12/18/2019 PROCEDURE: HISTORICAL COLONOSCOPY; COMMENT: normal OTHER SURGICAL HISTORY 11/05/2017 PROCEDURE: SD DILATION & CURETTAGE DX&/THER NONOBSTETRIC; COMMENT: SAB [...] Vaccine ( season) 2023 Influenza Vaccine (#1) 2024 01/09/2003 DTaP,Tdap,and Td Vaccines (10 - [...] RESULTING AGENCY - 03/22/2019 2:21 PM EST [id number] THINPREP PAP, IMAGED: NEGATIVE FOR SQUAMOUS INTRAEPITHELIAL LESION AND MALIGNANCY . CLUE CELLS ARE PRESENT. ELIJAH AMATO(ASCP) (CASE ELECTRONICALLY SIGNED 03 22 2019) RESULT OF APTIMA HIGH RISK HPV ASSAY: HIGH RISK HPV: NEGATIVE (SEROTYPES 16,18,31,33,35,39,45,51,52,56,58,59,66,68) COMPLETED ON 2019-03-22 ADEQUACY: SATISFACTORY ENDOCERVICAL/TRANSFORMATION ZONE COMPONENT PRESENT. SOURCE: THINPREP PAP HPV ANY DX: REFLEX 16 AND 18, CERVICAL, IMAGED CLINICAL INFORMATION: HPV ANY DIAGNOSIS. PAP HX NEG, Z12.4 us [facility] CYTOLOGY ORDERABLES Fin al Result HISTORICAL TESTING LAB RESULTING AGENCY from Last 3 Months or Most Recently Relevant to Health Maintenance Care Teams Doctor Osteopathic Relationship Specialty Start Date End Date Solitario John MD [address] [place] [address] PCP - General Internal Medicine 09/15/20
== END 2024-08-21 09:25 | disposition home or self-care (01) ==
LOC: HO.ENCR 08:48
PROVIDERS: PCP Nurse Practitioner Family; Visit Provider Internal Medicine Endocrinology, Diabetes & Metabolism
DX: E05.90 Thyrotoxicosis, unspecified without thyrotoxic crisis or storm (principal)
CPT/HCPCS: 99213

== ENCOUNTER 2024-08-23 09:08 | Outpatient (REF) | payer OTHER, SELFPAY ==
--- OUTSIDE RECORDS SUMMARY | 2024-08-23 09:24 | XMS_ITS | Clinical Summary ---
Author Organization [employer] [facility] it Address [address] [place] [address] Care Team Providers Care Project Superintendent Name Role Phone Solitario John MD Primary Care Provider [phone] Surgical History Surgery Date Site/Laterality Comments APPENDECTOMY PROCEDURE: HISTORICAL APPENDECTOMY WISDOM TOOTH EXTRACTION PROCEDURE: HISTORICAL WISDOM TEETH EXTRACTION COLONOSCOPY 12/18/2019 PROCEDURE: HISTORICAL COLONOSCOPY; COMMENT: normal OTHER SURGICAL HISTORY 11/05/2017 PROCEDURE: DC DILATION & CURETTAGE DX&/THER NONOBSTETRIC; COMMENT: SAB [...] 5 Years) and At-Risk Patients (6 to 49 Years) Aged Out No longer eligible based [...] RESULTING AGENCY - 03/22/2019 2:21 PM EST [id number] THINPREP PAP, IMAGED: NEGATIVE FOR SQUAMOUS INTRAEPITHELIAL [...] Recently Relevant to Health Maintenance Care Teams Project Superintendent Relationship Specialty Start Date End Date Solitario John MD [address] [place] [address] PCP - General Internal Medicine 09/15/20
[2024-08-23 10:32] LABS: Free T4 (Free Thyroxine) 1.49 ng/dL (0.71-1.85); Thyroid Stimulating Hormone < 0.01 uIU/mL (0.32-4.0)
== END 2024-08-23 09:09 | disposition home or self-care (01) ==
LOC: HO.10HDL 09:08
PROVIDERS: Visit Provider Internal Medicine Endocrinology, Diabetes & Metabolism
DX: E05.90 Thyrotoxicosis, unspecified without thyrotoxic crisis or storm (principal)
CPT/HCPCS: 36415; 84439; 84443; 84445; 84481